=== PATIENT | female | born 1990 | race Caucasian/White ===

== ENCOUNTER 2016-08-12 10:45 | Emergency (ER) | payer SELFPAY ==
[~2016-08-12] VITALS: Ht 157.5 cm; Wt 56.1 kg
[~2016-08-12 10:45] MED LIST: IRON45TA2 PO; PREN-39 PO
[2016-08-12 10:51] VITALS: Ht 157.5 cm; Wt 56.1 kg
== END 2016-08-12 12:27 | disposition left against medical advice (07) ==
LOC: FTE 10:45
DX: Z53.21 Procedure and treatment not carried out due to patient leaving prior to being seen by health care provider (principal)

== ENCOUNTER 2016-09-29 11:06 | Emergency (ER) | payer OTHER ==
[~2016-09-29] VITALS: Ht 157.5 cm; Wt 64.6 kg
[2016-09-29 11:08] VITALS: Ht 157.5 cm; Wt 64.6 kg
[2016-09-29] MEDS ORDERED: ONDANSETRON 4 MG INJ IV STA (12:10)
--- NOTE | 2016-09-29 12:16 | ERA ---
ER Documentation Chief Complaint Date/Time DATE: 09/29/16 TIME: 12:13 Chief Complaint 14 weeks with pelvic pain HPI The patient is a 26-year-old female, presenting to the ER because of abdominal pain, vaginal clear discharge, dysuria that began about 3 AM today. She also complains of diarrhea intermittently for the last 2 days, last sexual activity was about 4 months ago. She denies fever, chills, neck pain, chest pain, dyspnea. She complains of lower back pain. She does not smoke, drink, LMP was June 20, 2016, 4 para 3 Past medical/surgical history: None ROS All systems reviewed and are negative except as per history of present illness. Medications Home Meds Active Scripts Nitrofurantoin Monohyd Macrocr* (Macrobid*) 100 Mg Capsr, 100 MG PO BID for 10 Days, CAP Prov:CAITLIN CHAVARRIA MD 09/29/16 Reported Medications Iron,Carbonyl (IRON) 45 Mg Tablet, 45 MG PO DAILY 03/10/13 Vits W-Ca,Fe,Fa(<1MG) ( Vitamins) 1 Tab Tablet, 1 TAB PO DAILY 03/04/13 Allergies Allergies: Coded Allergies: No Known Allergy (Verified , 03/04/13) PMhx/Soc Hx Miscellaneous Medical Probl: No (no medical hx) Hx Alcohol Use: No Hx Substance Use: No Hx Tobacco Use: No Physical Exam Vitals Vital Signs Date Time Temp Pulse Resp B/P Pulse Ox O2 Delivery O2 Flow Rate FiO2 09/29/16 11:08 98.1 100 20 116/62 99 Physical Exam Const: No acute distress. Head: Atraumatic. Eyes: Normal Conjunctiva. ENT: Normal External Ears, Nose and Mouth. Neck: Full range of motion. No meningismus. Resp: Clear to auscultation bilaterally. Cardio: Regular rate and rhythm, no murmurs. Abd: Soft, non distended, normal bowel sounds, vague and diffuse abdominal discomfort, no rigidity, rebound, CVA tenderness Skin: No petechiae or rashes. Back: No midline or flank tenderness. Ext: No cyanosis, or edema. Neur: Awake and alert. No focal deficit Psych: Normal Mood and Affect. Result Diagram: 09/29/16 1220 09/29/16 1220 Results 24 hrs Laboratory Tests Test 09/29/16 12:20 09/29/16 13:02 White Blood Count 5.510^3/ul Red Blood Count 4.0910^6/ul Hemoglobin 11.7g/dl Hematocrit 34.3% Mean Corpuscular Volume 83.9fl Mean Corpuscular Hemoglobin 28.6pg Mean Corpuscular Hemoglobin Concent 34.1g/dl Red Cell Distribution Width 13.2% Platelet Count 89774^3/UL Mean Platelet Volume 11.8fl Neutrophils % 91.6% Lymphocytes % 4.5% Monocytes % 3.3% Eosinophils % 0.0% Basophils % 0.2% Nucleated Red Blood Cells % 0.0/100WBC Neutrophils # 5.110^3/ul Lymphocytes # 0.310^3/ul Monocytes # 0.210^3/ul Eosinophils # 0.010^3/ul Basophils # 0.010^3/ul Nucleated Red Blood Cells # 0.010^3/ul Sodium Level 133mmol/L Potassium Level 3.1mmol/L Chloride Level 100mmol/L Carbon Dioxide Level 22mmol/L Anion Gap 14 Blood Urea Nitrogen 9mg/dl Creatinine 0.56mg/dl Glucose Level 88mg/dl Calcium Level 8.1mg/dl Total Bilirubin 0.5mg/dl Direct Bilirubin 0.00mg/dl Indirect Bilirubin 0.5mg/dl Aspartate Amino Transf (AST/SGOT) 25IU/L Alanine Aminotransferase (ALT/SGPT) 25IU/L Alkaline Phosphatase 60IU/L Total Protein 6.8g/dl Albumin 3.5g/dl Globulin 3.30g/dl Albumin/Globulin Ratio 1.06 Lipase 170U/L Bedside Urine pH (LAB) 5.5 Bedside Urine Protein (LAB) Negative Bedside Urine Glucose (UA) Negative Bedside Urine Ketones (LAB) Trace Bedside Urine Blood Negative Bedside Urine Nitrite (LAB) Negative Bedside Urine Leukocyte Esterase (L 1+ Current Medications Medications (Trade) Dose Ordered Sig/Avinash Route PRN Reason Start Time Stop Time Status Last Admin Dose Admin Sodium Chloride (NS) 1,000 ml @ 1,000 mls/hr Q1H ONCE IV 09/29/16 12:30 09/29/16 13:29 DC 09/29/16 13:07 Ondansetron HCl (Zofran Inj) 4 mg ONCE STAT IV 09/29/16 12:10 09/29/16 12:11 DC 09/29/16 13:07 Potassium Chloride (Klor-Con 20) 40 meq ONCE STAT PO 09/29/16 13:15 09/29/16 13:17 DC 09/29/16 13:37 Procedures/MDM [place] [id number] Radiology Main Line: [phone] DIAGNOSTIC IMAGING REPORT Patient: AMAYA RUIZ : 1990 Age: 26 Sex: F MR #: [id number] DOS: 09/29/16 1221 Ordering MD: SANTOS ALEXANDER MD Location: [facility] Room/Bed: PROCEDURE: US OB CLINICAL INDICATION: PAIN TECHNIQUE: Multiple sonographic images of the pelvis were obtained. The images were reviewed on a PACS workstation. COMPARISON: None FINDINGS: The cervix is closed with a length of 3.9 cm. There is a single viable intrauterine gestation. Cardiac activity is present with 161 beats per minute. There is a variable presentation. The placenta is posterior. There is no evidence for an abruption or placenta previa. There is a subjectively normal amount of amniotic fluid. Measurements were made in order to determine age. The results are as follows (cm): BPD = 2.64 HC = 10.17 AC = 8.89 FL = 1.22 Estimated gestational age by ultrasound of approximately 14 weeks, 4 days. The estimated date of delivery by ultrasound is 03/26/2017. Reported gestational age by LMP of approximately 14 weeks, 3 days. The report date of delivery by LMP is eased 03/27/2017. EFW = 97 grams (33rd percentile) Bilateral ovaries are not visualized. There are no abnormal adnexal masses. IMPRESSION: Single viable intrauterine gestation of approximately 14 weeks, 4 days . The estimated date of delivery is 03/26/2017 . Dating by ultrasound is within 1 day of dating by LMP. Estimated weight is in the 33rd percentile. RPTAT: EE Physician Jaclyn Date Time Electronically viewed and signed by Physician Jaclyn on 09/29/2016 12:45 RA/ CC: SANTOS ALEXANDER MD MEDICAL MAKING DECISION: The patient is a 36-year-old female, presenting with acute cystitis, acute hypokalemia, acute dehydration. She was treated with 1 L normal saline for dehydration, Zofran 4 mg IV for nausea, potassium chloride 40 mEq for low potassium. On multiple reevaluation, she felt well. The differential diagnoses considered include but are not limited to cholelithiasis , cholecystitis, cystitis, pancreatitis, hepatitis, gastritis, peptic ulcer disease, gastric ulcer, appendicitis, diverticulitis, cholangitis, choledocholithiasis, partial small bowel obstruction. Departure Diagnosis: Primary Impression: UTI (urinary tract infection) Additional Impressions: Hypokalemia Dehydration Anemia Thrombocytopenia Condition: Good Comments She was discharged with Macrobid I discussed the findings with the patient. I advised the patient to follow-up with the primary physician in about 1-2 days, sooner if needed and return if any concern. CAITLIN CHAVARRIA MD Sep 29, 2016 12:16
[2016-09-29] MEDS ORDERED: SOD CHLORIDE 0.9% 1,000 ML IV ONE (12:30)
[2016-09-29 12:36] LABS: ADD SCAN DIFF NO
[2016-09-29 12:40] LABS: ABNORMAL IP MESSAGE 1; BASOPHILS % 0.2 % (0.0-2.0); HEMATOCRIT 34.3 % (37.0-47.0); HEMOGLOBIN 11.7 g/dl (12.0-16.0); LYMPHOCYTES # 0.3 10^3/ul (0.8-2.9); LYMPHOCYTES % 4.5 % (15.0-51.0); MEAN CORPUSCULAR HEMOGLOBIN 28.6 pg (29.0-33.0); MEAN CORPUSCULAR HGB CONC 34.1 g/dl (32.0-37.0); MEAN CORPUSCULAR VOLUME 83.9 fl (82.0-101.0); MEAN PLATELET VOLUME 11.8 fl (7.4-10.4); MONOCYTE # 0.2 10^3/ul (0.3-0.9); MONOCYTES % 3.3 % (0.0-11.0); NEUTROPHIL # 5.1 10^3/ul (1.6-7.5); NEUTROPHILS % 91.6 % (39.0-77.0); PLATELET COUNT 134 10^3/UL (140-415); RED BLOOD COUNT 4.09 10^6/ul (4.20-5.40); RED CELL DISTRIBUTION WIDTH 13.2 % (11.5-14.5); WHITE BLOOD COUNT 5.5 10^3/ul (4.8-10.8)
--- NOTE | 2016-09-29 12:45 | RADRPT ---
PROCEDURE: US OB CLINICAL INDICATION: PAIN TECHNIQUE: Multiple sonographic images of the pelvis were obtained. The images were reviewed on a PACS workstation. COMPARISON: None FINDINGS: The cervix is closed with a length of 3.9 cm. There is a single viable intrauterine gestation. Cardiac activity is present with 161 beats per minute. There is a variable presentation. The placenta is posterior. There is no evidence for an abruption or placenta previa. There is a subjectively normal amount of amniotic fluid. Measurements were made in order to determine age. The results are as follows (cm): BPD =2.64 HC =10.17 AC =8.89 FL =1.22 Estimated gestational age by ultrasound of approximately 14 weeks, 4 days. The estimated date of delivery by ultrasound is 03/26/2017. Reported gestational age by LMP of approximately 14 weeks, 3 days. The report date of delivery by LMP is eased 03/27/2017. EFW = 97 grams (33rd percentile) Bilateral ovaries are not visualized. There are no abnormal adnexal masses. IMPRESSION: Single viable intrauterine gestation of approximately 14 weeks, 4 days . The estimated date of delivery is 03/26/2017 . Dating by ultrasound is within 1 day of dating by LMP. Estimated weight is in the 33rd percentile. RPTAT: EE Physician Jaclyn Date Time Electronically viewed and signed by Physician Jaclyn on 09/29/2016 12:45 RA/
[2016-09-29 12:50] LABS: ALBUMIN 3.5 g/dl (3.3-4.9)
[2016-09-29 12:51] LABS: POTASSIUM 3.1 mmol/L (3.5-5.1)
[2016-09-29 12:53] LABS: ALBUMIN/GLOBULIN RATIO 1.06; BILIRUBIN,INDIRECT 0.5 mg/dl (0-1.1); BILIRUBIN,TOTAL 0.5 mg/dl (0.2-1.3); CALCIUM 8.1 mg/dl (8.4-10.2); CREATININE 0.56 mg/dl (0.44-1.00); TOTAL PROTEIN 6.8 g/dl (6.1-8.1)
[2016-09-29 13:02] LABS: URINE BLOOD (Dip) POC Negative (NEGATIVE)
[2016-09-29] MEDS ORDERED: POTASSIUM CHLORIDE (SR) 20 MEQ TAB PO STA (13:15)
[2016-09-29] MEDS ORDERED: NITR-58 PO (13:17)
== END 2016-09-29 14:13 | disposition home or self-care (01) ==
LOC: FTE 11:06
DX: O23.42 Unspecified infection of urinary tract in pregnancy, second trimester (principal); E87.6 Hypokalemia; E86.0 Dehydration; D64.9 Anemia, unspecified; D69.6 Thrombocytopenia, unspecified; O99.282 Endocrine, nutritional and metabolic diseases complicating pregnancy, second trimester; O99.112 Other diseases of the blood and blood-forming organs and certain disorders involving the immune mechanism complicating pregnancy, second trimester; R10.2 Pelvic and perineal pain; Z3A.14 14 weeks gestation of pregnancy
CPT/HCPCS: 36415; 76805; 80053; 81003; 83690; 84702; 85025; 86900; 86901; 96361; 96374; J2405; J7030; Z7502; Z7610

== ENCOUNTER 2016-10-02 21:11 | Emergency (ER) | payer OTHER ==
[~2016-10-02] VITALS: Ht 160 cm; Wt 30.0 kg
[~2016-10-02 21:11] MED LIST changes: +NITR-58 PO
[2016-10-02 21:20] VITALS: Ht 160 cm; Wt 30.0 kg
[2016-10-02 21:55] LABS: URINE BLOOD (Dip) POC 2+ (NEGATIVE)
[2016-10-02 22:15] LABS: ADD SCAN DIFF NO
[2016-10-02 22:18] LABS: BASOPHILS % 0.3 % (0.0-2.0); EOSINOPHILS # 0.1 10^3/ul (0.0-0.5); HEMATOCRIT 32.5 % (37.0-47.0); LYMPHOCYTES # 1.3 10^3/ul (0.8-2.9); LYMPHOCYTES % 37.1 % (15.0-51.0); MEAN CORPUSCULAR HEMOGLOBIN 28.5 pg (29.0-33.0); MEAN CORPUSCULAR HGB CONC 33.8 g/dl (32.0-37.0); MEAN CORPUSCULAR VOLUME 84.2 fl (82.0-101.0); MEAN PLATELET VOLUME 11.8 fl (7.4-10.4); MONOCYTE # 0.3 10^3/ul (0.3-0.9); NEUTROPHIL # 1.8 10^3/ul (1.6-7.5); NEUTROPHILS % 51.6 % (39.0-77.0); PLATELET COUNT 144 10^3/UL (140-415); RED BLOOD COUNT 3.86 10^6/ul (4.20-5.40); RED CELL DISTRIBUTION WIDTH 13.5 % (11.5-14.5); WHITE BLOOD COUNT 3.5 10^3/ul (4.8-10.8)
[2016-10-02 22:19] LABS: ADD UMIC YES; URINE BILIRUBIN (Dip) NEGATIVE (NEGATIVE); URINE BLOOD (Dip) 2+ (NEGATIVE); URINE COLOR LT. YELLOW (YELLOW); URINE GLUCOSE (Dip) NEGATIVE (NEGATIVE); URINE KETONES (Dip) NEGATIVE (NEGATIVE); URINE LEUKOCYTE ESTERASE (Dip) TRACE (NEGATIVE); URINE NITRITE (Dip) NEGATIVE (NEGATIVE); URINE TOTAL PROTEIN (Dip) NEGATIVE (NEGATIVE); URINE UROBILINOGEN (Dip) 2.0 E.U./dL (0.1-1.0)
[2016-10-02 22:33] LABS: BACTERIA,URINE FEW; SQUAMOUS EPITHELIAL CELL,UR MODERATE
--- NOTE | 2016-10-02 23:40 | RADRPT ---
PROCEDURE: US OB. US OB Transabd 1St Tri CLINICAL INDICATION: Vaginal Bleed () TECHNIQUE: Multiple sonographic images of the pelvis were obtained. The images were reviewed on a PACS workstation. COMPARISON: No prior studies are available for comparison. FINDINGS: There is a single viable intrauterine gestation. Cardiac activity is present with 154 beats per min [place]. Measurements were made in order to determine age. The results are as follows: BPD =2.8 cm. HC =10.4 cm. AC = 9.2 cm. FL =1.7 cm. Estimated gestational age of approximately 15 weeks and 1 day. The estimated date of delivery is 03/25/2017. Estimated delivery date by last menstrual period is 0 03/27/2017.. The EFW = 117 grams, 68% . The placenta is posterior fundal, grade 1. There is no evidence for an abruption or placenta previa. There is a normal amount of amniotic fluid with a maximum vertical pocket measuring 5.6 cm IMPRESSION: Single viable intrauterine gestation of approximately 15 weeks and 1 day. The estimated date of del loc is 03/25/2017. RPTAT: HBST .Panchito De Leon MD, Date Time Electronically viewed and signed by .Panchito De Leon MD, MD on 10/02/2016 23:39 .T/
[2016-10-02] MEDS ORDERED: CEPH500C PO (23:45)
--- NOTE | 2016-10-02 23:48 | ERD ---
ER Documentation Chief Complaint Date/Time DATE: 10/02/16 TIME: 23:47 Chief Complaint Vaginal bleed and 15 weeks HPI Patient is a 26-year-old female with 2 planned abortions and 2 miscarriages approximately 15 weeks complaining of vaginal bleeding that began today. 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 Denies any clots. Does admit to dysuria hematuria and increased urinary frequency. Also with a 8 out of 10 throbbing pelvic pain. Admits to nausea and vomiting. Denies any fever. She is tolerating oral intake. ROS All systems reviewed and are negative except as per history of present illness. Medications Home Meds Active Scripts Cephalexin* (Cephalexin*) 500 Mg Capsule, 500 MG PO BID, #10 CAP Prov:MELISSA BARRERA PA-C 10/02/16 Nitrofurantoin Monohyd Macrocr* (Macrobid*) 100 Mg Capsr, 100 MG PO BID for 10 Days, CAP Prov:CAITLIN CHAVARRIA MD 09/29/16 Reported Medications Iron,Carbonyl (IRON) 45 Mg Tablet, 45 MG PO DAILY 03/10/13 Vits W-Ca,Fe,Fa(<1MG) ( Vitamins) 1 Tab Tablet, 1 TAB PO DAILY 03/04/13 Allergies Allergies: Coded Allergies: No Known Allergy (Verified , 03/04/13) PMhx/Soc Medical and Surgical Hx: pt denies Medical Hx, pt denies Surgical Hx Hx Miscellaneous Medical Probl: Yes (para8 gravida3 ab 4) Hx Alcohol Use: No Hx Substance Use: No Hx Tobacco Use: No Smoking Status: Never smoker FmHx Family History: No diabetes Physical Exam Vitals Vital Signs Date Time Temp Pulse Resp B/P Pulse Ox O2 Delivery O2 Flow Rate FiO2 10/02/16 21:20 97.2 77 18 123/69 100 Physical Exam Const: [] Head: Atraumatic Eyes: Normal Conjunctiva ENT: Normal External Ears, Nose and Mouth. Neck: Full range of motion..~ No meningismus. Resp: Clear to auscultation bilaterally Cardio: Regular rate and rhythm, no murmurs Abd: Soft, non tender, non distended. Normal bowel sounds Result Diagram: 10/02/16 2200 Results 24 hrs Laboratory Tests Test 10/02/16 21:55 4/7/17 22:00 Bedside Urine pH (LAB) 7.0 Bedside Urine Protein (LAB) Negative Bedside Urine Glucose (UA) Negative Bedside Urine Ketones (LAB) Negative Bedside Urine Blood 2+ Bedside Urine Nitrite (LAB) Negative Bedside Urine Leukocyte Esterase (L Negative White Blood Count 3.510^3/ul Red Blood Count 3.8610^6/ul Hemoglobin 11.0g/dl Hematocrit 32.5% Mean Corpuscular Volume 84.2fl Mean Corpuscular Hemoglobin 28.5pg Mean Corpuscular Hemoglobin Concent 33.8g/dl Red Cell Distribution Width 13.5% Platelet Count 68346^3/UL Mean Platelet Volume 11.8fl Neutrophils % 51.6% Lymphocytes % 37.1% Monocytes % 9.0% Eosinophils % 2.0% Basophils % 0.3% Nucleated Red Blood Cells % 0.0/100WBC Neutrophils # 1.810^3/ul Lymphocytes # 1.310^3/ul Monocytes # 0.310^3/ul Eosinophils # 0.110^3/ul Basophils # 0.010^3/ul Nucleated Red Blood Cells # 0.010^3/ul Urine Color LT. YELLOW Urine Clarity CLEAR Urine pH 7.0 Urine Specific [place] <=1.005 Urine Ketones NEGATIVE Urine Nitrite NEGATIVE Urine Bilirubin NEGATIVE Urine Urobilinogen 2.0 E.U./dL Urine Leukocyte Esterase TRACE Urine Microscopic RBC 2-5/HPF Urine Microscopic WBC 2-5/HPF Urine Squamous Epithelial Cells MODERATE Urine Bacteria FEW Urine Hemoglobin 2+ Urine Glucose NEGATIVE% Urine Total Protein NEGATIVE Beta HCG, Quantitative 14567.0mIU/ml Procedures/MDM Patient presents with vaginal bleeding during . Vital signs are within normal limits she is well-appearing in no distress. GI examination is benign. OB ultrasound and labs unremarkable other than possible urinary tract infection which he does have symptoms and so I will treat her with Keflex. She was given copies of her labs that she can follow with her primary care doctor. Recommend patient follow with primary care within 2 days or return for any new or worsening symptoms. Departure Diagnosis: Primary Impression: Cystitis Additional Impression: Threatened Condition: Stable Patient Instructions: Cystitis, Possible Miscarriage (Threatened ) Additional Instructions: Call your primary care doctor TOMORROW for an appointment during the next 1-2 days.See the doctor sooner or return here if your condition worsens before your appointment time. MELISSA BARRERA PA-C, Apr 7, 2017 23:48
[2016-10-03 00:06] VITALS: BP 115/61; PULSE 69; RESP 20
== END 2016-10-03 00:07 | disposition home or self-care (01) ==
LOC: FTE 21:11
DX: O23.12 Infections of bladder in pregnancy, second trimester (principal); O20.0 Threatened abortion; Z3A.15 15 weeks gestation of pregnancy
CPT/HCPCS: 36415; 76801; 81001; 81003; 84702; 85025; 86900; 86901; Z7502

== ENCOUNTER 2016-11-26 10:46 | Outpatient (CLI) | payer OTHER ==
[~2016-11-26] VITALS: Ht 160 cm; Wt 62.8 kg
[~2016-11-26 10:46] MED LIST changes: +CEPH500C PO
[2016-11-26 10:49] VITALS: Ht 160 cm; Wt 62.8 kg
[2016-11-26 10:54] VITALS: BP 111/56; PULSE 72; RESP 18
[2016-11-26] MEDS ORDERED: LACTATED RINGER'S 1,000 ML IV ONE (11:30)
[2016-11-26 12:03] LABS: ADD SCAN DIFF NO
[2016-11-26 12:16] LABS: BASOPHILS % 0.5 % (0.0-2.0); EOSINOPHILS % 0.5 % (0.0-7.0); HEMATOCRIT 29.4 % (37.0-47.0); HEMOGLOBIN 9.8 g/dl (12.0-16.0); LYMPHOCYTES # 1.1 10^3/ul (0.8-2.9); LYMPHOCYTES % 25.7 % (15.0-51.0); MEAN CORPUSCULAR HEMOGLOBIN 27.1 pg (29.0-33.0); MEAN CORPUSCULAR HGB CONC 33.3 g/dl (32.0-37.0); MEAN CORPUSCULAR VOLUME 81.4 fl (82.0-101.0); MEAN PLATELET VOLUME 11.9 fl (7.4-10.4); MONOCYTE # 0.3 10^3/ul (0.3-0.9); NEUTROPHIL # 2.9 10^3/ul (1.6-7.5); NEUTROPHILS % 65.8 % (39.0-77.0); PLATELET COUNT 172 10^3/UL (140-415); RED BLOOD COUNT 3.61 10^6/ul (4.20-5.40); RED CELL DISTRIBUTION WIDTH 13.8 % (11.5-14.5); WHITE BLOOD COUNT 4.4 10^3/ul (4.8-10.8)
[2016-11-26 12:37] LABS: ADD UMIC YES; URINE BILIRUBIN (Dip) NEGATIVE (NEGATIVE); URINE BLOOD (Dip) NEGATIVE (NEGATIVE); URINE COLOR LT. YELLOW (YELLOW); URINE GLUCOSE (Dip) NEGATIVE (NEGATIVE); URINE KETONES (Dip) NEGATIVE (NEGATIVE); URINE LEUKOCYTE ESTERASE (Dip) 2+ (NEGATIVE); URINE NITRITE (Dip) NEGATIVE (NEGATIVE); URINE TOTAL PROTEIN (Dip) NEGATIVE (NEGATIVE); URINE UROBILINOGEN (Dip) 1.0 E.U./dL (0.1-1.0)
[2016-11-26 13:13] LABS: BACTERIA,URINE FEW; URINE RBCS NONE SEEN /HPF (0)
[2016-11-26] MEDS ORDERED: LACTATED RINGER'S 1,000 ML IV SCH (14:00)
--- NOTE | 2016-11-26 14:22 | RADRPT ---
PROCEDURE: Limited obstetric ultrasound CLINICAL INDICATION: Pain , labor TECHNIQUE: Multiple transverse and longitudinal grayscale images of the pelvis were obtained posada sabdominally and transvaginally.. COMPARISON: 10/02/2016 FINDINGS: The cervix is closed with a length of 4.5 cm. There is a single viable intrauterine gestation. Cardiac activity is present with 148 beats per min [place]. There is a transverse maternal left presentation. The placenta is posterior. There is no evidence for an abruption or placenta previa. RPTAT: AA IMPRESSION: Cervix length measures 4.5 cm. .Christopher Smith MD, Date Time Electronically viewed and signed by .Christopher Smith MD, MD on 11/26/2016 14:21 .S/
--- NOTE | 2016-11-26 14:50 | CONS ---
Date/Time of Note Date/Time of Note DATE: 11/26/16 TIME: 14:41 Consultation Date/Type/Reason Admit Date/Time November 26, 2016 OB triage consult Reason for Consultation This patient is a 26 years old 8, para 3, living 3, two spontaneous and 2 induced . All her 3 deliveries were vaginal She came to triage complaining of cramping for 2 days. Her cramps are mostly in the lower abdomen as well as in the back. She had a history of urinary tract infection a few months ago for which she was treated with antibiotic. On general examination she is a well-developed well-nourished lady in mid trimester . Her general vital signs within normal limits, blood pressure 111/56, pulse rate 72, respiration 8, temperature 98.6. On review her lab study her urine test came back with the 2+ leukocyte esterase and 2-5 WBCs, her hemoglobin is 9.8 hematocrit 29.4 otherwise her CBC appears to be normal . On ultrasound study a single viable intrauterine gestation in vertex presentation with heart rates of 148 bpm. Cervical length was reported as 4.5 cm placenta was posterior Laboratory Tests Test 11/26/16 11:30 White Blood Count 4.410^3/ul Red Blood Count 3.6110^6/ul Hemoglobin 9.8g/dl Hematocrit 29.4% Mean Corpuscular Volume 81.4fl Mean Corpuscular Hemoglobin 27.1pg Mean Corpuscular Hemoglobin Concent 33.3g/dl Red Cell Distribution Width 13.8% Platelet Count 73540^3/UL Mean Platelet Volume 11.9fl Neutrophils % 65.8% Lymphocytes % 25.7% Monocytes % 7.0% Eosinophils % 0.5% Basophils % 0.5% Nucleated Red Blood Cells % 0.0/100WBC Neutrophils # 2.910^3/ul Lymphocytes # 1.110^3/ul Monocytes # 0.310^3/ul Eosinophils # 0.010^3/ul Basophils # 0.010^3/ul Nucleated Red Blood Cells # 0.010^3/ul Urine Color LT. YELLOW Urine Clarity CLEAR Urine pH 5.5 Urine Specific [place] 1.010 Urine Ketones NEGATIVE Urine Nitrite NEGATIVE Urine Bilirubin NEGATIVE Urine Urobilinogen 1.0 E.U./dL Urine Leukocyte Esterase 2+ Urine Microscopic RBC NONE SEEN/HPF Urine Microscopic WBC 2-5/HPF Urine Epithelial Cells MODERATE Urine Bacteria FEW Urine Hemoglobin NEGATIVE Urine Glucose NEGATIVE% Urine Total Protein NEGATIVE Current Medications Medications (Trade) Dose Ordered Sig/Avinash Route PRN Reason Start Time Stop Time Status Last Admin Dose Admin Lactated Ringer's 1,000 ml @ 1,000 mls/hr Q1H ONCE IV 11/26/16 11:30 11/26/16 12:29 DC 11/26/16 11:30 1,000 MLS/HR Lactated Ringer's (Lr) 1,000 ml @ 125 mls/hr Q8H IV 11/26/16 14:00 11/26/16 14:21 125 MLS/HR Constitutional: other (General malaise and low back pain), No chills, No diaphoresis, No disoriented, No febrile, No improved, No no complaints, No poor po, No requiring IVF, No requiring O2 Eyes: No discharge, No no complaints, No other, No pain, No redness, No visual change ENT: No bleeding, No congestion, No discharge, No dysphagia, No no complaints, No other, No pain, No sore throat Respiratory: No cough, No no complaints, No other, No pain, No pleuritic pain, No shortness of breath, No sputum, No wheezing Cardiovascular: No chest pain, No edema, No lightheadedness, No no complaints, No orthopenea, No other, No palpitations, No paroxysmal nocturnal dyspnea Gastrointestinal: No blood, No constipation, No decreased appetite, No diarrhea , No flatus, No nausea, No no complaints, No other, No pain, No passing stool, No vomiting Genitourinary: other (Slight CVA tenderness lower abdominal pain), No bleeding, No discharge, No dysuria, No flank pain, No hematuria, No no complaints Musculoskeletal: No back pain, No bone/joint pain, No neck pain, No no complaints, No other, No restricted range of motion, No swelling Skin: No bruising, No erythema, No laceration, No no complaints, No other, No pruritis, No rash, No skin lesions Neurologic: No confusion, No dizziness, No focal-weakness, No headache, No no complaints, No other, No seizure, No syncope Endocrine: No dry skin, No no complaints, No other, No polydypsia, No polyuria , No temp intolerance Additional Comments Due to history of urinary tract infection the urine specimen sent for culture and sensitivity. A prescription given for Macrobid 100 mg to be taken twice daily Patient is recommended to contact the clinic or the hospital to see the results of the urinalysis and culture sensitivity and to be placed on more effective antibiotic according to the result of the sensitivity. Social History Smoking Status: Never smoker Exam/Review of Systems Vital Signs Vitals Vital Signs Date Time Temp Pulse Resp B/P Pulse Ox O2 Delivery O2 Flow Rate FiO2 11/26/16 10:54 98.5 72 18 111/56 Room Air Results Result Diagram: 11/26/16 1130 Results 24 hrs Laboratory Tests Test 11/26/16 11:30 White Blood Count 4.4 #L Red Blood Count 3.61 L Hemoglobin 9.8 L Hematocrit 29.4 L Mean Corpuscular Volume 81.4 L Mean Corpuscular Hemoglobin 27.1 L Mean Corpuscular Hemoglobin Concent 33.3 Red Cell Distribution Width 13.8 Platelet Count 172 Mean Platelet Volume 11.9 H Neutrophils % 65.8 Lymphocytes % 25.7 Monocytes % 7.0 Eosinophils % 0.5 Basophils % 0.5 Nucleated Red Blood Cells % 0.0 Neutrophils # 2.9 Lymphocytes # 1.1 Monocytes # 0.3 Eosinophils # 0.0 Basophils # 0.0 Nucleated Red Blood Cells # 0.0 Urine Color LT. YELLOW Urine Clarity CLEAR Urine pH 5.5 Urine Specific [place] 1.010 Urine Ketones NEGATIVE Urine Nitrite NEGATIVE Urine Bilirubin NEGATIVE Urine Urobilinogen 1.0 E.U./dL Urine Leukocyte Esterase 2+ H Urine Microscopic RBC NONE SEEN Urine Microscopic WBC 2-5 Urine Epithelial Cells MODERATE Urine Bacteria FEW Urine Hemoglobin NEGATIVE Urine Glucose NEGATIVE Urine Total Protein NEGATIVE Medications Medications Current Medications Lactated Ringer's (Lr) 1,000 ml @ 125 mls/hr Q8H IV Last administered on t 14:21; Admin Dose 125 MLS/HR; Start 11/26/16 at 14:00 ERMA STALEY MD Nov 26, 2016 14:50
--- NOTE | 2016-11-26 15:31 | TRIAGE ---
OB Triage Datetime Report Generated by CPN: 11/26/2016 15:30 Datetime: 11/26/2016 14:30 Monitor Mode: External Resting Tone [place]: Relaxed Contraction Comments: Contractions difficult to monitor due to pt moving in bed. Datetime: 11/26/2016 13:30 Labor Evaluation Frequency: OCC Monitor Mode: External Resting Tone [place]: Relaxed Contraction Comments: Contractions difficult to monitor due to pt moving in bed. Datetime: 11/26/2016 12:30 Labor Evaluation Frequency: OCC Monitor Mode: External Quality: Mild Pattern: Normal: <= 5 Contractions in 10 Minutes Resting Tone [place]: Relaxed Contraction Comments: Contractions difficult to monitor due to pt moving in bed. Datetime: 11/26/2016 11:30 Monitor Mode: External Resting Tone [place]: Relaxed Pain Assessment Pain Scale: 6 Pain Presence: Intermittent Pain Type: Ache Pain Location: Abdomen; Back Pain Goal: 0 Pain Relief Measures: Comfort Measures Datetime: 11/26/2016 11:15 Heart Rate FHR Baseline Rate: 140 Monitor Mode: Doppler Datetime: 11/26/2016 10:54 Assessment Type: Triage Maternal Assessment Level of Consciousness: Fully Conscious DTR's/Clonus: DTRs 2+; No Clonus Headache: Denies Blurred Vision: No Respiratory Effort: Unlabored; Regular Rhythm; Equal Expansion Breath Sounds, Left: Clear and Equal Breath Sounds, Right: Clear and Equal Nausea/Vomiting: Denies RUQ Epigastric Pain: Denies Lower Extremities Edema: None Degree: None Upper Extremities Edema: None Degree: None Facial Edema: None Temperature Route: Oral Fall Risk Assessment History of Falling: (0) No Secondary Diagnosis: (0) No Ambulatory Aid: (0) Bedrest/Nurse Assist IV Therapy: (0) No Gait: (0) Normal/Bedrest/Immobile Mental Status: (0) Oriented to Own Ability Fall Score: 0 Fall Risk Score Definition: No Risk: No action required Datetime: 11/26/2016 10:48 Time of Arrival: 11/26/2016 10:40 EGA: 23.0 Arrived By: Wheelchair Arrived From: Emergency Dept Chief Complaint: back and abdominal pain Movement: Present Contractions: Denies/Absent Rupture of Membranes: Denies Vaginal Bleeding: None Vaginal Discharge: Denies Recent Sexual Intercouse: Denies Abdominal Trauma: Not Applicable Patient Complaints: Contractions Time Provider Notified: 11/26/2016 11:06 Provider Notified: [facility] Initial Plan: Doppler, TOCO monitoring, UA and Urine culture, CBC, IV Hydration 1L LR bolus Datetime: 11/26/2016 10:47 Stage of : OB Triage
== END 2016-11-26 14:55 | disposition home or self-care (01) ==
LOC: OBT 10:46 → L-D 10:47 → OBT 14:55
PROVIDERS: ATTEND Obstetrics & Gynecology
DX: O26.892 Other specified pregnancy related conditions, second trimester (principal); R10.30 Lower abdominal pain, unspecified; M54.9 Dorsalgia, unspecified; O09.292 Supervision of pregnancy with other poor reproductive or obstetric history, second trimester; Z3A.23 23 weeks gestation of pregnancy
CPT/HCPCS: 36415; 76817; 81001; 85025; 87086; 96360; 96361; J7120; Z7500; G0463

== ENCOUNTER 2016-12-27 12:59 | Outpatient (CLI) | payer OTHER ==
[~2016-12-27] VITALS: Ht 160 cm; Wt 66.4 kg
[~2016-12-27 12:59] MED LIST changes: -CEPH500C PO
[2016-12-27] MEDS ORDERED: FER325 PO (13:15)
[2016-12-27 13:16] VITALS: BP 109/58; PULSE 77; RESP 18; Ht 160 cm; Wt 66.4 kg
--- NOTE | 2016-12-27 14:31 | RADRPT ---
PROCEDURE: US OB. CLINICAL INDICATION: Premature rupture of membranes. Pelvic pain. TECHNIQUE: Multiple sonographic images of the pelvis were obtained. The images were reviewed on a PACS workstation. COMPARISON: November 26, 2016, November 18, 2016 FINDINGS: The cervix is closed with a length of 3.93 cm. There is a single viable intrauterine gestation. Cardiac activity is present with 124 beats per min [place]. There is a breech presentation. Measurements were made in order to determine age. The results are as follows: BPD =6.45 cm HC =25.12 cm AC =25.18 cm FL =4.85 cm. Estimated gestational age of approximately 27 weeks 2 days. The estimated date of delivery is March 26, 2017. The EFW = a 1148 g plus or minus 172 g or 2 pounds 8 ounces. This is in the 57.8 percentile . The heart, intracranial contents, spine, stomach, kidneys, bladder and cord insertion are visualized and without abnormality. The placenta is posterior. There is no evidence for an abruption or placenta previa. There is a normal amount of amniotic fluid with an [place] = 18.1 cm. There are no adnexal masses.. IMPRESSION: Single viable intrauterine gestation of approximately 27 weeks 2 days. The estimated date of delive ry is March 26, 2017. The weight is in the 57.8 percentile . Appropriate growth has occurred. No acute abnormality is seen. RPTAT: EE .Rosa M Wong MD, MD Date Time Electronically viewed and signed by .Rosa M Wong MD, MD on 12/27/2016 14:30 .F/
--- NOTE | 2016-12-27 15:47 | TRIAGE ---
OB Triage Datetime Report Generated by CPN: 12/27/2016 15:47 Datetime: 12/27/2016 15:00 Stage of : OB Triage Maternal Assessment Level of Consciousness: Fully Conscious Labor Evaluation Frequency: 1UC/HR Monitor Mode: External Duration (sec)2399: 60 Quality: Mild Resting Tone [place]: Relaxed Heart Rate FHR Baseline Rate: 135 Monitor Mode: External US Variability: Moderate 6-25 bpm Accelerations: 15X15 Decelerations: None Pain Assessment Pain Scale: 0 Pain Goal: 3 Vaginal Exam Membrane Status: Intact Vaginal Bleeding: None Datetime: 12/27/2016 14:00 Stage of : OB Triage Maternal Assessment Level of Consciousness: Fully Conscious Labor Evaluation Frequency: NONE Monitor Mode: External Resting Tone [place]: Relaxed Heart Rate FHR Baseline Rate: 135 Monitor Mode: External US Variability: Moderate 6-25 bpm Accelerations: 10X10 Decelerations: None Pain Assessment Pain Scale: 0 Pain Goal: 3 Vaginal Exam Membrane Status: Intact Vaginal Bleeding: None Datetime: 12/27/2016 13:11 Assessment Type: Triage Maternal Assessment Level of Consciousness: Fully Conscious DTR's/Clonus: DTRs 2+; No Clonus Headache: Denies Blurred Vision: No Respiratory Effort: Unlabored; Regular Rhythm; Equal Expansion Breath Sounds, Left: Clear and Equal Breath Sounds, Right: Clear and Equal Nausea/Vomiting: Denies RUQ Epigastric Pain: Denies Lower Extremities Edema: None Degree: None Upper Extremities Edema: None Degree: None Facial Edema: None Fall Risk Assessment History of Falling: (0) No Secondary Diagnosis: (0) No Ambulatory Aid: (0) Bedrest/Nurse Assist IV Therapy: (0) No Gait: (0) Normal/Bedrest/Immobile Mental Status: (0) Oriented to Own Ability Fall Score: 0 Fall Risk Score Definition: No Risk: No action required Datetime: 12/27/2016 13:07 Pool: Negative Nitrazine: Negative Datetime: 12/27/2016 13:05 Monitor Mode: External Monitor Mode: External US Datetime: 12/27/2016 13:02 Time of Arrival: 12/27/2016 12:59 EGA: 27.3 Arrived By: Ambulance Arrived From: Home Chief Complaint: PT BROUGHT IN VIA RESCUE FOR C/O POSSIBLE SROM Movement: Present Contractions: Denies/Absent Rupture of Membranes: Unsure Vaginal Bleeding: None Vaginal Discharge: Present Recent Sexual Intercouse: Denies Abdominal Trauma: Not Applicable Patient Complaints: None Time Provider Notified: 12/27/2016 13:05 Provider Notified: [facility] Initial Plan: ROM PLUS, U/S FOR EFW, SHASHANK, CVL Datetime: 11/26/2016 10:54 Fall Score: 0 Fall Risk Score Definition: No Risk: No action required Datetime: 11/26/2016 10:48 EGA: 23.0
--- NOTE | 2016-12-27 15:48 | HP ---
Date/Time of Note Date/Time of Note DATE: 12/27/16 TIME: 15:44 OB - History Hx of Present Free Text/Dictation 26 YO who present to L&D with complaint of one episode of LOF per vagina. she denies vaginal bleeding or UCs. she reports good FM. she denies any further LOF per vagina. she reports good FM. Care: Good Care Obstetrical Complications: None Medical Complications: None Past Family/Social History * Past Medical, Surgical, Family and Obstetric Histories reviewed from chart. OB Admission Exam Vital Signs Vital Signs Vital Signs Date Time Temp Pulse Resp B/P Pulse Ox O2 Delivery O2 Flow Rate FiO2 12/27/16 13:16 98.2 77 18 109/58 98 Room Air Physical Exam HEENT: WNL Heart: Rhythm Normal Lungs: Clear, Equal Abdomen: WNL Extremities: Normal Reflexes: Normal Cervical Dilatation: other (SSE: Pooling is negative. Nitrazine is negative. cervix is long and closed) Effacement: 0% Station: -3 OB Assessment/Plan Other Assessment: 28 weeks IUP PPROM was ruled out Other plan: discharge home TURNER DIOP MD Dec 27, 2016 15:47
== END 2016-12-27 15:52 | disposition home or self-care (01) ==
LOC: OBT 12:59 → L-D 12:59 → OBT 15:52
PROVIDERS: ATTEND Obstetrics & Gynecology
DX: O42.912 Preterm premature rupture of membranes, unspecified as to length of time between rupture and onset of labor, second trimester (principal); Z3A.27 27 weeks gestation of pregnancy
CPT/HCPCS: 76815; 76817; 84112; Z7500; G0463

== ENCOUNTER 2017-02-19 03:10 | Outpatient (CLI) | payer OTHER ==
[~2017-02-19] VITALS: Ht 160 cm; Wt 69.8 kg
[~2017-02-19 03:10] MED LIST changes: +CEPH500C PO; +FER325 PO; +PREN1TAB49
[2017-02-19 03:28] VITALS: BP 126/76; PULSE 80; RESP 18
[2017-02-19] MEDS ORDERED: TERBUTALINE 1 MG/ML INJ SC ONE (05:00)
--- NOTE | 2017-02-19 05:17 | RADRPT ---
PROCEDURE: Biophysical profile. CLINICAL INDICATION: Pelvic pain. TECHNIQUE: Multiple sonographic images of the pelvis were obtained with transabdominal technique. COMPARISON: 02/06/2017. FINDINGS: There is a single living intrauterine gestation with the fetus in a vertex position. The placenta i s posterior in location, grade 1. heart tones of 146 beats per minute are identified. There i s normal amniotic fluid volume with an SHASHANK of 16.2 cm. breathing movements = 2 Gross body movements = 2 tone = 2 Qualitative AFV = 2 IMPRESSION: Biophysical profile 8 out of 8. .Nic Mckeon MD, Date Time Electronically viewed and signed by .Nic Mckeon MD, on 02/19/2017 05:17 .T/
--- NOTE | 2017-02-19 06:07 | PN ---
Triage Information Date/Time February 19, 2017 Reason for visit: Uterine contractions (Since 0100) Weeks of Gestation 35w 1d /Para 8/3 Diabetes: none Hypertention: none Additional information No leaking or bleeding.+FM. PMHx: none. POBHx: x 3; TAB x 2. SAB x 2. PSHx: D and C x 2 for the 2 TAB's. NKDA. Objective Vital Signs Date Time Temp Pulse Resp B/P Pulse Ox O2 Delivery O2 Flow Rate FiO2 02/19/17 03:28 98.3 80 18 126/76 Room Air Heart Rate: 130's Heart Rate Comments with accels to 160 bpm. No decels. Contractions: < 5 Minutes Apart Exam 50%1/-3 Results/Medications Imaging Results BPP 02/02. SHASHANK 16.2. VTX. Disposition: Discharge Assessment/Plan A: IUP at 35w 1d. False labor. P: Pt was given p.o. terbutaline and p.o. hydration and the UC's stopped. D/C home with labor precautions. ZENOBIA BATRES MD Feb 19, 2017 06:06
[2017-02-19 06:35] LABS: ADD UMIC YES; UR ASCORBIC ACID NEGATIVE (NEGATIVE); UR BACTERIA FEW /HPF (NONE SEEN); UR BILIRUBIN (Dip) NEGATIVE (NEGATIVE); UR BLOOD (Dip) NEGATIVE (NEGATIVE); UR CLARITY SLIGHTLY CLOUDY (CLEAR); UR COLOR STRAW (YELLOW); UR GLUCOSE (Dip) NEGATIVE (NEGATIVE); UR KETONES (Dip) NEGATIVE (NEGATIVE); UR LEUKOCYTE ESTERASE (Dip) 1+ Leu/ul (NEGATIVE); UR NITRITE (Dip) NEGATIVE (NEGATIVE); UR RBC 2 /HPF (0-5); UR SPECIFIC GRAVITY (Dip) 1.004 (1.003-1.030); UR SQUAMOUS EPITHELIAL CELL MODERATE /HPF (FEW); UR TOTAL PROTEIN (Dip) NEGATIVE (NEGATIVE); UR UROBILINOGEN (Dip) NEGATIVE (NEGATIVE)
[2017-02-19 07:00] LABS: BARBITURATES Negative (NEGATIVE); BENZODIAZEPINES Negative (NEGATIVE); CANNABINOIDS Negative (NEGATIVE); COCAINE Negative (NEGATIVE); OPIATES Negative (NEGATIVE)
== END 2017-02-19 06:08 | disposition home or self-care (01) ==
LOC: L-D 03:10 → OBT 03:10
PROVIDERS: ATTEND Obstetrics & Gynecology
DX: O62.9 Abnormality of forces of labor, unspecified (principal); Z3A.35 35 weeks gestation of pregnancy
CPT/HCPCS: 76818; 80307; 81001; 96372; J3105; Z7500; G0463

== ENCOUNTER 2017-02-24 13:57 | Outpatient (CLI) | payer OTHER ==
[~2017-02-24] VITALS: Ht 160 cm; Wt 71.4 kg
[~2017-02-24 13:57] MED LIST changes: -CEPH500C PO; -IRON45TA2 PO; -NITR-58 PO; -PREN1TAB49
[2017-02-24 16:02] LABS: ADD UMIC NO; UR ASCORBIC ACID NEGATIVE (NEGATIVE); UR BILIRUBIN (Dip) NEGATIVE (NEGATIVE); UR BLOOD (Dip) NEGATIVE (NEGATIVE); UR CLARITY CLEAR (CLEAR); UR COLOR YELLOW (YELLOW); UR GLUCOSE (Dip) NEGATIVE (NEGATIVE); UR KETONES (Dip) NEGATIVE (NEGATIVE); UR LEUKOCYTE ESTERASE (Dip) NEGATIVE Leu/ul (NEGATIVE); UR NITRITE (Dip) NEGATIVE (NEGATIVE); UR SPECIFIC GRAVITY (Dip) 1.011 (1.003-1.030); UR TOTAL PROTEIN (Dip) NEGATIVE (NEGATIVE); UR UROBILINOGEN (Dip) 2+ mg/dL (NEGATIVE)
--- NOTE | 2017-02-24 16:48 | RADRPT ---
PROCEDURE: US biophysical profile. CLINICAL INDICATION: Decreased motion. TECHNIQUE: Multiple sonographic images of the uterus were obtained. The images were revi ewed on a PACS workstation. COMPARISON: 02/19/2017. FINDINGS: There is a single live intrauterine gestation. heart rate is 122 beats per minute. The position is cephalic. The placenta is posterior fundal left lateral grade 1 with no abruption or previa. The SHASHANK is 19.7 cm. (Normal = 5-20 cm.) Breathing Movement: 0 Gross Body Movement: 2 Tone: 2 Qualitative Amniotic Fluid Volume: 2 TOTAL: 6 IMPRESSION: 1. The biophysical score is 6/8. RPTAT: QQ .Ari Rosa MD, MD Date Time Electronically viewed and signed by .Ari Rosa MD, on 02/24/2017 16:47 .R/
[2017-02-24 16:52] VITALS: Ht 160 cm; Wt 71.4 kg
[2017-02-24] MEDS ORDERED: DEXTROSE 5%-LR 1,000 ML IV SCH (17:05)
--- NOTE | 2017-02-24 20:20 | RADRPT ---
PROCEDURE: Obstetrical ultrasound for biophysical profile CLINICAL INDICATION: Biophysical profile. . TECHNIQUE: Obstetrical ultrasound of the uterus for biophysical profile. Transabdominal views are obtained. COMPARISON: 02/24/2017 FINDINGS: Single intrauterine gestation. Presentation: Breech Placenta: Posterior No evidence of placental abruption. Lower margin of the placenta its relationship to the cervix are not well visualized. breathing movement = 2/2 tone = 2/2 motion = 2/2 SHASHANK = 2/2 SHASHANK = 18.3 cm heart rate: 129 beats per minute IMPRESSION: Single intrauterine gestation. Biophysical profile 02/02 RPTAT: AADD .Jovani West MD, MD Date Time Electronically viewed and signed by .Jovani West MD, on 02/24/2017 20:20 .B/
--- NOTE | 2017-02-24 20:57 | PN ---
Triage Information Date/Time February 24, 2017 Reason for visit: Pelvic pain and pressure as well as contractions Weeks of Gestation 35 weeks and 6 days /Para 8 para 3 Diabetes: none Hypertention: none Additional information 26-year-old she takes P3 with IUP at 35 weeks and 6 days [facility] presents with complaint of vaginal pain and contractions. Denies any leaking of fluid, vaginal bleeding or decreased movement. She was noted to be 1 cm dilated 50% effaced -3. She had been observed and had IV hydration. BPP initially was 6/8, -2 for breathing and after hydration and IV fluid improved to 8/8. Patient symptoms resolved. Cervical exam did not show any change. Objective Heart Rate: 120's Contractions: >10 Minutes Apart Exam SVE: 1/50/-3, vertex NST: Category 1 Rare contractions seen on the monitor Repeat exam did not show any change Fundal Height consistent with date. Results/Medications Results 24 hrs Laboratory Tests Test 02/24/17 15:00 Urine Color YELLOW Urine Clarity CLEAR Urine pH 7.0 Urine Specific [place] 1.011 Urine Ketones NEGATIVE Urine Nitrite NEGATIVE Urine Bilirubin NEGATIVE Urine Urobilinogen 2+ H Urine Leukocyte Esterase NEGATIVE Urine Hemoglobin NEGATIVE Urine Glucose NEGATIVE Urine Total Protein NEGATIVE Medications Current Medications Dextrose/Lactated Ringer's (D5-Lr) 1,000 ml @ 200 mls/hr Q5H IV Last administered on 02/24/17t 18:28; Admin Dose 200 MLS/HR; Start 02/24/17 at 17:05 Imaging Results PROCEDURE: Obstetrical ultrasound for biophysical profile CLINICAL INDICATION: Biophysical profile. . TECHNIQUE: Obstetrical ultrasound of the uterus for biophysical profile. Transabdominal views are obtained. COMPARISON: 02/24/2017 FINDINGS: Single intrauterine gestation. Presentation: Breech Placenta: Posterior No evidence of placental abruption. Lower margin of the placenta its relationship to the cervix are not well visualized. breathing movement = 2/2 tone = 2/2 motion = 2/2 SHASHANK = 2/2 SHASHANK = 18.3 cm heart rate: 129 beats per minute IMPRESSION: Single intrauterine gestation. Biophysical profile 02/02 Disposition: Discharge Assessment/Plan IUP at 35 weeks and 6 days Not in labor testing reassuring DC home Follow-up within 24-48 hours with OB office Strict labor precaution and kick count discussed CINDY HARRINGTON MD Feb 24, 2017 20:57
--- NOTE | 2017-02-24 23:27 | TRIAGE ---
OB Triage Datetime Report Generated by CPN: 02/24/2017 23:26 Datetime: 02/24/2017 19:57 Heart Rate FHR Baseline Rate: 130 Monitor Mode: External US FHR Baseline Changes: No Baseline Change Variability: Moderate 6-25 bpm Accelerations: 15X15 Decelerations: None Category: Category I Datetime: 02/24/2017 19:39 Monitor Mode: External Resting Tone [place]: Relaxed Heart Rate FHR Baseline Rate: 130 Monitor Mode: External US Datetime: 02/24/2017 17:51 Vaginal Exam Dilatation (cms): 1.0 Effacement (%): 50 Station: -3 Exam By: Elle RN Datetime: 02/24/2017 17:45 Comments: NST DONE, monitors removed Datetime: 02/24/2017 16:54 Time of Arrival: 02/24/2017 13:51 EGA: 35.6 Arrived By: Ambulatory Arrived From: Home Chief Complaint: VAGINAL PAIN Movement: Present Contractions: Regular Rupture of Membranes: Denies Vaginal Bleeding: None Vaginal Discharge: Denies Recent Sexual Intercouse: Denies Abdominal Trauma: Not Applicable Patient Complaints: Other Time Provider Notified: 02/24/2017 14:00 Provider Notified: [facility] Initial Plan: EFM x2, SVE, IV with D5LR Datetime: 02/24/2017 15:58 Labor Evaluation Frequency: 3-6 Monitor Mode: External Duration (sec)2399: 60-120 Quality: Mild Pattern: Normal: <= 5 Contractions in 10 Minutes Resting Tone [place]: Relaxed Heart Rate FHR Baseline Rate: 130 Monitor Mode: External US FHR Baseline Changes: No Baseline Change Variability: Moderate 6-25 bpm Accelerations: 15X15 Decelerations: None Category: Category I Pain Assessment Pain Scale: 8 Pain Presence: Intermittent Pain Type: Contraction Pain Location: Back Pain Goal: 0 Pain Relief Measures: Comfort Measures Datetime: 02/24/2017 14:58 Labor Evaluation Frequency: OCC Monitor Mode: External Quality: Mild Pattern: Normal: <= 5 Contractions in 10 Minutes Resting Tone [place]: Relaxed Heart Rate FHR Baseline Rate: 125 Monitor Mode: External US FHR Baseline Changes: No Baseline Change Variability: Moderate 6-25 bpm Accelerations: 15X15 Decelerations: None Category: Category I Pain Assessment Pain Scale: 6 Pain Presence: Intermittent Pain Type: Contraction Pain Location: Back Pain Goal: 0 Pain Relief Measures: Comfort Measures Datetime: 02/24/2017 14:55 Vaginal Exam Dilatation (cms): 1.0 Effacement (%): 50 Station: -3 Exam By: Elle RN Datetime: 02/24/2017 14:00 Assessment Type: Triage Maternal Assessment Level of Consciousness: Fully Conscious DTR's/Clonus: DTRs 2+; No Clonus Headache: Denies Blurred Vision: No Respiratory Effort: Unlabored; Regular Rhythm; Equal Expansion Breath Sounds, Left: Clear and Equal Breath Sounds, Right: Clear and Equal Nausea/Vomiting: Denies RUQ Epigastric Pain: Denies Facial Edema: None Fall Risk Assessment History of Falling: (0) No Secondary Diagnosis: (0) No Ambulatory Aid: (0) Bedrest/Nurse Assist IV Therapy: (0) No Gait: (0) Normal/Bedrest/Immobile Mental Status: (0) Oriented to Own Ability Fall Score: 0 Fall Risk Score Definition: No Risk: No action required Datetime: 02/19/2017 05:57 Stage of : OB Triage Datetime: 02/19/2017 05:33 Stage of : OB Triage Monitor Mode: External US FHR Baseline Changes: No Baseline Change Variability: Moderate 6-25 bpm Accelerations: 15X15 Datetime: 02/19/2017 04:50 Stage of : OB Triage Labor Evaluation Frequency: 2-4 Monitor Mode: External Quality: Moderate Pattern: Normal: <= 5 Contractions in 10 Minutes Resting Tone [place]: Relaxed Heart Rate FHR Baseline Rate: 130 Monitor Mode: External US FHR Baseline Changes: No Baseline Change Variability: Moderate 6-25 bpm Accelerations: 15X15 Decelerations: None Category: Category I Pain Assessment Pain Scale: 8 Pain Presence: Intermittent Pain Type: Contraction Pain Location: Abdomen Datetime: 02/19/2017 03:44 Labor Evaluation Frequency: 2-4 Monitor Mode: External Quality: Moderate Pattern: Normal: <= 5 Contractions in 10 Minutes Resting Tone [place]: Relaxed Heart Rate FHR Baseline Rate: 140 Monitor Mode: External US FHR Baseline Changes: No Baseline Change Variability: Moderate 6-25 bpm Accelerations: 15X15 Category: Category I Datetime: 02/19/2017 03:30 Time of Arrival: 02/19/2017 03:06 EGA: 35.1 Arrived By: Wheelchair Arrived From: Home Chief Complaint: w/ c/o ucs Movement: Present Contractions: Regular Time Contractions Began: 02/19/2017 01:00 Contractions: q5 Rupture of Membranes: Denies Vaginal Bleeding: None Vaginal Discharge: Denies Recent Sexual Intercouse: Denies Abdominal Trauma: Not Applicable Patient Complaints: Contractions Time Provider Notified: 02/19/2017 04:50 Provider Notified: Dr Yung Initial Plan: EFM,SVE, po hydration Datetime: 02/19/2017 03:26 Labor Evaluation Frequency: 2-3 Monitor Mode: External Duration (sec)2399: 60 Quality: Moderate Pattern: Normal: <= 5 Contractions in 10 Minutes Resting Tone [place]: Relaxed Heart Rate FHR Baseline Rate: 140 Monitor Mode: External US Variability: Moderate 6-25 bpm Accelerations: 15X15 Decelerations: Variable Category: Category II Vaginal Exam Dilatation (cms): 1.0 Effacement (%): 50 Station: -3 Exam By: Yifan Peters Membrane Status: Intact Vaginal Bleeding: None Cervix, Consistency: Soft Cervix, Position: Posterior Datetime: 02/19/2017 03:18 Stage of : OB Triage Maternal Assessment Level of Consciousness: Fully Conscious Headache: Denies Blurred Vision: No Respiratory Effort: Unlabored Nausea/Vomiting: Denies RUQ Epigastric Pain: Denies Facial Edema: None Labor Evaluation Frequency: placed Monitor Mode: External Resting Tone [place]: Relaxed Heart Rate FHR Baseline Rate: 135 Monitor Mode: External US Pain Assessment Pain Scale: 10 Pain Presence: Intermittent Pain Type: Contraction Pain Location: Abdomen Datetime: 02/06/2017 00:04 Stage of : OB Triage Datetime: 02/05/2017 22:57 Stage of : OB Triage Heart Rate FHR Baseline Rate: 135 Monitor Mode: External US FHR Baseline Changes: No Baseline Change Variability: Moderate 6-25 bpm Accelerations: 15X15 Comments: Pt frequently moving and difficult to monitor Datetime: 02/05/2017 22:01 Stage of : OB Triage Monitor Mode: External Quality: Mild Pattern: Normal: <= 5 Contractions in 10 Minutes Resting Tone [place]: Relaxed Heart Rate FHR Baseline Rate: 135 Monitor Mode: External US Variability: Moderate 6-25 bpm Accelerations: 15X15 Pain Assessment Pain Scale: 5 Pain Presence: Intermittent Pain Type: Cramping Pain Location: Abdomen Datetime: 02/05/2017 21:10 Stage of : OB Triage Monitor Mode: External Quality: Mild Pattern: Normal: <= 5 Contractions in 10 Minutes Resting Tone [place]: Relaxed Heart Rate FHR Baseline Rate: 140 Monitor Mode: External US Variability: Moderate 6-25 bpm Accelerations: 15X15 Datetime: 02/05/2017 21:00 EGA: 33.1 Datetime: 02/05/2017 20:47 Stage of : OB Triage Headache: Denies Blurred Vision: No Respiratory Effort: Unlabored Facial Edema: None Labor Evaluation Frequency: placed Monitor Mode: External Resting Tone [place]: Relaxed Heart Rate FHR Baseline Rate: 140 Monitor Mode: External US Pain Assessment Pain Scale: 7 Pain Presence: Intermittent Pain Type: Cramping Pain Location: Abdomen Datetime: 12/27/2016 13:11 Fall Score: 0 Fall Risk Score Definition: No Risk: No action required Datetime: 12/27/2016 13:02 EGA: 27.3 Datetime: 11/26/2016 10:54 Fall Score: 0 Fall Risk Score Definition: No Risk: No action required Datetime: 11/26/2016 10:48 EGA: 23.0
== END 2017-02-24 21:04 | disposition home or self-care (01) ==
LOC: OBT 13:57 → L-D 13:59 → OBT 21:04
PROVIDERS: ATTEND Obstetrics & Gynecology
DX: O26.893 Other specified pregnancy related conditions, third trimester (principal); R10.2 Pelvic and perineal pain; Z3A.35 35 weeks gestation of pregnancy
CPT/HCPCS: 76818; 81003; J7121; 36415; 96360; 96361; G0463

== ENCOUNTER 2017-03-08 20:26 | Observation (INO) | payer OTHER ==
[~2017-03-08] VITALS: Ht 160 cm; Wt 72.3 kg
[2017-03-08 21:10] VITALS: Ht 160 cm; Wt 72.3 kg
[2017-03-08 21:11] VITALS: BP 139/73; PULSE 80; RESP 20
[2017-03-08] MEDS ORDERED: FOL8 PO (21:14)
[2017-03-08 22:23] LABS: BARBITURATES Negative (NEGATIVE); BENZODIAZEPINES Negative (NEGATIVE); CANNABINOIDS Negative (NEGATIVE); COCAINE Negative (NEGATIVE); OPIATES Negative (NEGATIVE)
--- NOTE | 2017-03-08 22:25 | RADRPT ---
PROCEDURE: Obstetrical ultrasound CLINICAL INDICATION: . OB ultrasound with fluid volume assessment. TECHNIQUE: Obstetrical ultrasound of the uterus for fluid volume assessment. Transabdomi nal imaging of the uterus was performed. COMPARISON: 02/24/2017 FINDINGS: Presentation: Cephalic Partially visualized placenta: Posterior heart rate: 140 Beats per minute. IMPRESSION: Amniotic fluid index equals 23.5 cm. Previously 18.3 cm. Mild polyhydramnios. RPTAT: AADD .Jovani West MD, Date Time Electronically viewed and signed by .Jovani West MD, MD on 03/08/2017 22:24 .B/
[2017-03-08 23:19] LABS: ADD UMIC NO; UR ASCORBIC ACID NEGATIVE (NEGATIVE); UR BACTERIA FEW /HPF (NONE SEEN); UR BILIRUBIN (Dip) NEGATIVE (NEGATIVE); UR BLOOD (Dip) NEGATIVE (NEGATIVE); UR CLARITY SLIGHTLY CLOUDY (CLEAR); UR COLOR YELLOW (YELLOW); UR GLUCOSE (Dip) NEGATIVE (NEGATIVE); UR KETONES (Dip) NEGATIVE (NEGATIVE); UR LEUKOCYTE ESTERASE (Dip) NEGATIVE Leu/ul (NEGATIVE); UR NITRITE (Dip) NEGATIVE (NEGATIVE); UR RBC 1 /HPF (0-5); UR SPECIFIC GRAVITY (Dip) 1.008 (1.003-1.030); UR SQUAMOUS EPITHELIAL CELL FEW /HPF (FEW); UR TOTAL PROTEIN (Dip) NEGATIVE (NEGATIVE); UR UROBILINOGEN (Dip) NEGATIVE (NEGATIVE)
--- NOTE | 2017-03-09 00:25 | TRIAGE ---
OB Triage Datetime Report Generated by CPN: 03/09/2017 00:25 Datetime: 03/09/2017 00:13 Stage of : OB Triage Labor Evaluation Frequency: 3-5 Monitor Mode: External Duration (sec)2399: 60-90 Quality: Moderate Pattern: Normal: <= 5 Contractions in 10 Minutes Resting Tone [place]: Relaxed Heart Rate FHR Baseline Rate: 140 Monitor Mode: External US FHR Baseline Changes: No Baseline Change Variability: Moderate 6-25 bpm Accelerations: 15X15 Decelerations: Variable Category: Category II Datetime: 03/09/2017 00:09 Vaginal Exam Dilatation (cms): 3.0 Effacement (%): 60 Station: -1 Exam By: gstratton Datetime: 03/08/2017 23:33 Stage of : OB Triage Comments: PT BACK FROM AMBULATORY, MONITORS REATTACHED. Datetime: 03/08/2017 21:31 Labor Evaluation Frequency: q2-5 Monitor Mode: External Duration (sec)2399: 60-90 Quality: Moderate Resting Tone [place]: Relaxed Heart Rate FHR Baseline Rate: 140 Monitor Mode: External US FHR Baseline Changes: No Baseline Change Variability: Moderate 6-25 bpm Accelerations: 15X15 Decelerations: None Category: Category I Datetime: 03/08/2017 20:49 Vaginal Exam Dilatation (cms): 1.5 Effacement (%): 30 Station: -1 Exam By: alyssa rnc Vaginal Bleeding: None Cervix, Consistency: Moderate Cervix, Position: Posterior Presentation 'A': Unable to Assess Datetime: 03/08/2017 20:48 Assessment Type: Triage Maternal Assessment Level of Consciousness: Fully Conscious DTR's/Clonus: DTRs 2+; No Clonus Headache: Denies Blurred Vision: No Respiratory Effort: Unlabored; Regular Rhythm; Equal Expansion Breath Sounds, Left: Clear and Equal Breath Sounds, Right: Clear and Equal Nausea/Vomiting: Denies RUQ Epigastric Pain: Denies Facial Edema: None Fall Risk Assessment History of Falling: (0) No Secondary Diagnosis: (0) No Ambulatory Aid: (0) Bedrest/Nurse Assist IV Therapy: (0) No Gait: (0) Normal/Bedrest/Immobile Mental Status: (0) Oriented to Own Ability Fall Score: 0 Fall Risk Score Definition: No Risk: No action required Datetime: 03/08/2017 20:43 Pain Assessment Pain Scale: 7 Pain Presence: Intermittent Pain Goal: 0 Datetime: 03/08/2017 20:42 Time of Arrival: 03/08/2017 20:42 EGA: 37.4 Arrived By: Ambulatory Arrived From: Home Chief Complaint: diarrhea and pressure Movement: Present Contractions: Irregular Rupture of Membranes: Denies Vaginal Bleeding: None Vaginal Discharge: Present Recent Sexual Intercouse: Denies Abdominal Trauma: Not Applicable Patient Complaints: Other Time Provider Notified: 03/08/2017 21:32 Provider Notified: [facility] Initial Plan: u/s for position and jorge, uds, ambulate 2 hours Datetime: 02/24/2017 16:54 EGA: 35.6 Datetime: 02/24/2017 14:00 Fall Score: 0 Fall Risk Score Definition: No Risk: No action required Datetime: 02/19/2017 03:30 EGA: 35.1 Datetime: 02/05/2017 21:00 EGA: 33.1 Datetime: 12/27/2016 13:11 Fall Score: 0 Fall Risk Score Definition: No Risk: No action required Datetime: 12/27/2016 13:02 EGA: 27.3 Datetime: 11/26/2016 10:54 Fall Score: 0 Fall Risk Score Definition: No Risk: No action required Datetime: 11/26/2016 10:48 EGA: 23.0
[2017-03-09] MEDS ORDERED: CARBOPROST 250 MCG INJ IM PRN (00:30)
[2017-03-09] MEDS ORDERED: OXYTOCIN 30 UNITS/LR 500 ML IV PRN (00:30)
[2017-03-09] MEDS ORDERED: MISOPROSTOL 200 MCG TAB PR PRN (00:30)
[2017-03-09] MEDS ORDERED: OXYTOCIN 30 UNITS/LR 500 ML IV SCH ×2 (00:30)
[2017-03-09] MEDS ORDERED: IBUPROFEN 600 MG TAB PO PRN (00:30)
[2017-03-09] MEDS ORDERED: LIDOCAINE 1% (MPF) 30 ML INJ INJ PRN (00:30)
[2017-03-09] MEDS ORDERED: MINERAL OIL LIGHT 10 ML VIAL TOP ONE (00:30)
[2017-03-09] MEDS ORDERED: METHYLERGONOVINE 0.2 MG INJ IM PRN (00:30)
[2017-03-09] MEDS ORDERED: BUTORPHANOL 2 MG INJ IV PRN (00:30)
[2017-03-09] MEDS: LACTATED RINGER'S 1,000 ML IV SCH ×3 (01:12→13:50)
[2017-03-09 01:33] LABS: ABNORMAL IP MESSAGE 1; BASOPHILS % 0.4 % (0.0-2.0); EOSINOPHILS # 0.1 10^3/ul (0.0-0.5); EOSINOPHILS % 0.7 % (0.0-7.0); HEMATOCRIT 30.3 % (37.0-47.0); HEMOGLOBIN 9.4 g/dl (12.0-16.0); LYMPHOCYTES # 1.6 10^3/ul (0.8-2.9); LYMPHOCYTES % 21.7 % (15.0-51.0); MEAN CORPUSCULAR HEMOGLOBIN 21.9 pg (29.0-33.0); MEAN CORPUSCULAR VOLUME 70.6 fl (82.0-101.0); MEAN PLATELET VOLUME 11.5 fl (7.4-10.4); MONOCYTE # 0.5 10^3/ul (0.3-0.9); MONOCYTES % 6.1 % (0.0-11.0); NEUTROPHILS % 70.7 % (39.0-77.0); NUCLEATED RED BLOOD CELLS% 0.3 /100WBC (0.0-0.0); PLATELET COUNT 159 10^3/UL (140-415); RED BLOOD COUNT 4.29 10^6/ul (4.20-5.40); RED CELL DISTRIBUTION WIDTH 16.7 % (11.5-14.5); WHITE BLOOD COUNT 7.5 10^3/ul (4.8-10.8)
[2017-03-09 01:38] LABS: POSITIVE DIFF @See below
[2017-03-09 01:56] LABS: INR 0.91; PROTIME 12.3 Sec (12.2-14.2)
[2017-03-09 01:57] LABS: PARTIAL THROMBOPLASTIN TIME 29.7 Sec (25.0-35.0)
[2017-03-09] MEDS ORDERED: LACTATED RINGER'S 1,000 ML IV PRN (02:00)
--- NOTE | 2017-03-09 02:38 | HP ---
Date/Time of Note Date/Time of Note DATE: 03/09/17 TIME: 02:30 OB - History Hx of Present Free Text/Dictation 26 Year-old with SIUP at 37 4/7 weeks presents with a chief complaint of UCS. She has been receiving her care with Dr. Sidhu. She states good movement. She denies nausea, vomiting, shortness of breath, chest pain, headache, visual changes, vaginal bleeding or LOF. Estimated Due Date: Mar 27, 2017 : 8 Para: 3 Care: Good Care Ultrasounds: Normal mid trimester US Obstetrical Complications: None Past Family/Social History * Past Medical, Surgical, Family and Obstetric Histories reviewed from chart. Blood Type: A+ Rubella: immune RPR/VDRL: Negative GBS Status: Negative HBsAG: Negative OB Admission Exam Vital Signs Vital Signs Vital Signs Date Time Temp Pulse Resp B/P Pulse Ox O2 Delivery O2 Flow Rate FiO2 03/08/17 21:11 98.0 80 20 139/73 Room Air Physical Exam HEENT: WNL Heart: Rhythm Normal Lungs: Clear Abdomen: WNL Extremities: Normal Cervical Dilatation: 3cm Effacement: 75% Station: -2 Membranes: Intact Heart Rate: 140's Accelerations: Accelerations Present Decelerations: Early Decelerations Varibility: Moderate Contractions on Admission: < 5 Minutes Apart Intensity: Moderate Last 72 hours Lab Results CBC & BMP 03/09/17 01:10 OB Assessment/Plan Other plan: 26 Year-old with SIUP at 37 4/7 weeks - FHR: No sign of metabolic acidosis- Category I - Continious EFM, toco - CBC, blood type and screen - Analgesia options with R/B/A discussed in detail with patient - Epidural per patient request - Please see the orders - A+/Rubella: Immune/obtain GBS negative Admission, procedures, expectations, risks and possible complications have been discussed in detail with the patient. Risk of vaginal delivery including but not limited to bleeding, infection, cervical laceration, placental retention, injury to fetus, blood transfusion, blood transfusion related infection, risk of anesthesia, adhesion, cervical laceration, episiotomy/laceration, possible delivery with risk of bleeding, infection, injury to other organs ( bowel, bladder, ureter, vessels, nerves), injury to fetus, blood transfusion, blood transfusion related infection, risk of anesthesia, scar and hernia formation, needs for future , removal of uterus or any other indicated surgery discussed with the patient. She expressed understanding and repeats the risks. All of her questions were answered; all appropriate consents will be signed. PHYSICIAN'S VERIFICATION OF INFORMED CONSENT: The patient was counseled regarding the procedure, its indications, risks, potential complications and alternatives and any questions were answered. Consent was obtained. PLANNED PROCEDURE/TREATMENT: Vaginal delivery with possible vacuum/forceps delivery episiotomy, repair of laceration possible delivery PHYSICIAN'S VERIFICATION OF INFORMED CONSENT FOR BLOOD TRANSFUSION: There is a reasonable possibility that blood transfusion will be necessary as a result of the patient's procedure. I have discussed the following with the patient/patient's legal dental detail representative: An explanation of the benefits and risks of the transfusion of blood or blood products and the possible alternatives. Al questions have been answered to the patient's satisfaction. LISA SALEEM Mar 09, 2017 02:38
--- NOTE | 2017-03-09 14:35 | DS ---
Date/Time of Note Date/Time of Note DATE: 03/09/17 TIME: 14:34 Obstetrical Discharge Record Final Diagnosis Final Diagnosis: Term not delivered Other Final Diagnosis Not in active labor Condition on Discharge Physical Assessment Voiding: Yes Bowel Movement: Yes Calf Tenderness: No Patient Condition: Stable SALVADOR HUERTA MD Mar 09, 2017 14:35
== END 2017-03-09 14:50 | disposition home or self-care (01) ==
LOC: OBT 20:26 → OBG 20:26 → L-D 21:30 → OBT 03-09 00:14 → INTOOBSV 03-09 00:14 → L-D 03-09 00:14
PROVIDERS: ADMIT Obstetrics & Gynecology; ATTEND Obstetrics & Gynecology
DX: O47.1 False labor at or after 37 completed weeks of gestation (principal); Z3A.37 37 weeks gestation of pregnancy
CPT/HCPCS: 36415; 76815; 80307; 81001; 85025; 85610; 85730; 86592; 86900; 86901; 87340; 96360; 96361; J7120; Z7500; 81003; 99217; G0378; G0463

== ENCOUNTER 2017-03-12 15:30 | Outpatient (CLI) | payer OTHER ==
[~2017-03-12] VITALS: Ht 160 cm; Wt 73.4 kg
[~2017-03-12 15:30] MED LIST changes: +FOL8 PO
[2017-03-12 16:56] VITALS: Ht 160 cm; Wt 73.4 kg
--- NOTE | 2017-03-12 18:36 | RADRPT ---
PROCEDURE: Obstetrical ultrasound greater than 14 weeks CLINICAL INDICATION: Vaginal leaking. Possible ruptured membranes TECHNIQUE: Real time sonographic imaging of the gravid uterus is performed transabdominally and mu ltiple static cowan scale and Doppler images are submitted for review as are measurements. The image s are reviewed on the PACS. COMPARISON: 03/08/2017 FINDINGS: . There is a single living intrauterine gestation in cephalic presentation. The heart beat is estimated at 144 bpm. Placenta is posterior and grade2. There is no evidence of placenta previa or abruption. The amniotic fluid index is normal estimated at 16.5 cm. RPTAT:HJJR IMPRESSION: 1. Single viable intrauterine gestation in cephalic presentation, the amniotic fluid index estimated at 16.5 cm, normal but decreased from the study of 03/08/2017 at which time it measured 23.6 cm. 2. Normal heart rate of 144 bpm. Physician Ira Date Time Electronically viewed and signed by Physician Ira on 03/12/2017 18:36 JR/
[2017-03-12 19:42] LABS: ADD UMIC NO; UR ASCORBIC ACID NEGATIVE (NEGATIVE); UR BILIRUBIN (Dip) NEGATIVE (NEGATIVE); UR BLOOD (Dip) NEGATIVE (NEGATIVE); UR CLARITY CLEAR (CLEAR); UR COLOR YELLOW (YELLOW); UR GLUCOSE (Dip) NEGATIVE (NEGATIVE); UR KETONES (Dip) NEGATIVE (NEGATIVE); UR LEUKOCYTE ESTERASE (Dip) NEGATIVE Leu/ul (NEGATIVE); UR NITRITE (Dip) NEGATIVE (NEGATIVE); UR SPECIFIC GRAVITY (Dip) 1.014 (1.003-1.030); UR TOTAL PROTEIN (Dip) NEGATIVE (NEGATIVE); UR UROBILINOGEN (Dip) 2+ mg/dL (NEGATIVE)
[2017-03-12 19:58] LABS: ABNORMAL IP MESSAGE 1; BASOPHILS % 0.3 % (0.0-2.0); EOSINOPHILS % 0.5 % (0.0-7.0); HEMATOCRIT 27.7 % (37.0-47.0); HEMOGLOBIN 8.4 g/dl (12.0-16.0); LYMPHOCYTES # 1.5 10^3/ul (0.8-2.9); MEAN CORPUSCULAR HEMOGLOBIN 21.2 pg (29.0-33.0); MEAN CORPUSCULAR HGB CONC 30.3 g/dl (32.0-37.0); MEAN CORPUSCULAR VOLUME 69.9 fl (82.0-101.0); MEAN PLATELET VOLUME 12.5 fl (7.4-10.4); MONOCYTE # 0.4 10^3/ul (0.3-0.9); MONOCYTES % 6.9 % (0.0-11.0); NEUTROPHIL # 3.9 10^3/ul (1.6-7.5); NEUTROPHILS % 66.6 % (39.0-77.0); PLATELET COUNT 157 10^3/UL (140-415); RED BLOOD COUNT 3.96 10^6/ul (4.20-5.40); WHITE BLOOD COUNT 5.8 10^3/ul (4.8-10.8)
[2017-03-12 19:59] LABS: POSITIVE DIFF @See below
[2017-03-12 20:03] LABS: ALBUMIN 3.1 g/dl (3.3-4.9); ALBUMIN/GLOBULIN RATIO 1.03; BILIRUBIN,INDIRECT 0.3 mg/dl (0-1.1); BILIRUBIN,TOTAL 0.3 mg/dl (0.2-1.3); CALCIUM 8.3 mg/dl (8.4-10.2); CREATININE 0.65 mg/dl (0.44-1.00); POTASSIUM 3.7 mmol/L (3.5-5.1); TOTAL PROTEIN 6.1 g/dl (6.1-8.1); URIC ACID 4.3 mg/dl (3.1-7.9)
--- NOTE | 2017-03-12 20:31 | PN ---
Triage Information Date/Time Reason for visit: SROM Weeks of Gestation 38 weeks /Para Diabetes: none Hypertention: none Objective Heart Rate: 130's Contractions: >10 Minutes Apart Exam No cervical change Sterile speculum exam negative Results/Medications Result Diagram: 03/12/17 1906 03/12/17 1906 Results 24 hrs Laboratory Tests Test 03/12/17 17:35 03/12/17 19:05 03/12/17 19:06 Membranes Rupture NEGATIVE Urine Color YELLOW Urine Clarity CLEAR Urine pH 5.0 Urine Specific [place] 1.014 Urine Ketones NEGATIVE Urine Nitrite NEGATIVE Urine Bilirubin NEGATIVE Urine Urobilinogen 2+ H Urine Leukocyte Esterase NEGATIVE Urine Hemoglobin NEGATIVE Urine Glucose NEGATIVE Urine Total Protein NEGATIVE White Blood Count 5.8 # Red Blood Count 3.96 L Hemoglobin 8.4 L Hematocrit 27.7 L Mean Corpuscular Volume 69.9 L Mean Corpuscular Hemoglobin 21.2 L Mean Corpuscular Hemoglobin Concent 30.3 L Red Cell Distribution Width 17.0 H Platelet Count 157 Mean Platelet Volume 12.5 H Neutrophils % 66.6 Lymphocytes % 25.0 Monocytes % 6.9 Eosinophils % 0.5 Basophils % 0.3 Nucleated Red Blood Cells % 0.0 Neutrophils # 3.9 Lymphocytes # 1.5 Monocytes # 0.4 Eosinophils # 0.0 Basophils # 0.0 Nucleated Red Blood Cells # 0.0 Sodium Level 135 Potassium Level 3.7 Chloride Level 107 Carbon Dioxide Level 23 Anion Gap 9 Blood Urea Nitrogen 10 Creatinine 0.65 Glucose Level 87 Uric Acid 4.3 Calcium Level 8.3 L Total Bilirubin 0.3 Direct Bilirubin 0.00 Indirect Bilirubin 0.3 Aspartate Amino Transf (AST/SGOT) 33 Alanine Aminotransferase (ALT/SGPT) 32 Alkaline Phosphatase 193 H Total Protein 6.1 Albumin 3.1 L Globulin 3.00 Albumin/Globulin Ratio 1.03 Imaging Results SHASHANK normal Disposition: Discharge Assessment/Plan No sign of SROM Not in labor D/C home. SALVADOR HUERTA MD Mar 12, 2017 20:31
--- NOTE | 2017-03-12 20:36 | TRIAGE ---
OB Triage Datetime Report Generated by CPN: 03/12/2017 20:35 Datetime: 03/12/2017 20:00 Labor Evaluation Frequency: OCC Monitor Mode: External Quality: Mild Pattern: Normal: <= 5 Contractions in 10 Minutes Resting Tone [place]: Relaxed Heart Rate FHR Baseline Rate: 135 Monitor Mode: External US FHR Baseline Changes: No Baseline Change Variability: Moderate 6-25 bpm Accelerations: 15X15 Decelerations: None Category: Category I Pain Presence: None/Denies Datetime: 03/12/2017 19:00 Labor Evaluation Frequency: OCC Monitor Mode: External Quality: Mild Pattern: Normal: <= 5 Contractions in 10 Minutes Resting Tone [place]: Relaxed Heart Rate FHR Baseline Rate: 130 Monitor Mode: External US FHR Baseline Changes: No Baseline Change Variability: Moderate 6-25 bpm Accelerations: 15X15 Decelerations: None Category: Category I Datetime: 03/12/2017 18:37 Vaginal Exam Dilatation (cms): 3.0 Effacement (%): 50 Station: -3 Exam By: MD Delshad Datetime: 03/12/2017 17:52 Labor Evaluation Frequency: OCC Monitor Mode: External Quality: Mild Pattern: Normal: <= 5 Contractions in 10 Minutes Resting Tone [place]: Relaxed Heart Rate FHR Baseline Rate: 135 Monitor Mode: External US FHR Baseline Changes: No Baseline Change Variability: Moderate 6-25 bpm Accelerations: 15X15 Decelerations: None Category: Category I Pain Presence: None/Denies Datetime: 03/12/2017 17:38 Vaginal Exam Dilatation (cms): 3.0 Effacement (%): 50 Station: -3 Exam By: Elle HOFFMANN Pool: Negative Datetime: 03/12/2017 17:00 Time of Arrival: 03/12/2017 15:20 EGA: 38.1 Arrived By: Ambulatory Arrived From: Home Chief Complaint: Mucous plug discharged Movement: Present Contractions: Occasional Rupture of Membranes: Denies Vaginal Bleeding: Normal Show Vaginal Discharge: Present Recent Sexual Intercouse: Denies Abdominal Trauma: Not Applicable Patient Complaints: Other Additional Patient Complaints: Time Provider Notified: 03/12/2017 16:49 Provider Notified: Shola Initial Plan: NST, OB US: SHASHANK, ROM +, VE, CMP, CBC, UA Labor Evaluation Frequency: OCC Monitor Mode: External Quality: Moderate Pattern: Normal: <= 5 Contractions in 10 Minutes Resting Tone [place]: Relaxed Heart Rate FHR Baseline Rate: 135 Monitor Mode: External US FHR Baseline Changes: No Baseline Change Variability: Moderate 6-25 bpm Accelerations: 15X15 Decelerations: None Category: Category I Pain Assessment Pain Scale: 2 Pain Presence: Intermittent Pain Type: Ache Pain Location: Abdomen Pain Goal: 0 Pain Relief Measures: Comfort Measures Datetime: 03/12/2017 16:15 Assessment Type: Triage Maternal Assessment Level of Consciousness: Fully Conscious DTR's/Clonus: DTRs 2+; No Clonus Headache: Denies Blurred Vision: No Respiratory Effort: Unlabored; Regular Rhythm; Equal Expansion Breath Sounds, Left: Clear and Equal Breath Sounds, Right: Clear and Equal Nausea/Vomiting: Denies RUQ Epigastric Pain: Denies Lower Extremities Edema: None Degree: None Upper Extremities Edema: None Degree: None Facial Edema: None Fall Risk Assessment History of Falling: (0) No Secondary Diagnosis: (0) No Ambulatory Aid: (0) Bedrest/Nurse Assist IV Therapy: (0) No Gait: (0) Normal/Bedrest/Immobile Mental Status: (0) Oriented to Own Ability Fall Score: 0 Fall Risk Score Definition: No Risk: No action required Datetime: 03/09/2017 14:49 Labor Evaluation Frequency: occ Monitor Mode: External Duration (sec)2399: 60 Quality: Mild Pattern: Normal: <= 5 Contractions in 10 Minutes Resting Tone [place]: Relaxed Heart Rate FHR Baseline Rate: 135 Monitor Mode: External US Variability: Moderate 6-25 bpm Accelerations: 15X15 Decelerations: None Category: Category I Pain Assessment Pain Scale: 3 Pain Presence: Intermittent Pain Type: Contraction Pain Location: Abdomen Pain Goal: 3 Datetime: 03/09/2017 14:29 Vaginal Exam Dilatation (cms): 1.5 Exam By: [email or web address] Datetime: 03/09/2017 14:18 Vaginal Exam Dilatation (cms): 1.5 Station: -3 Exam By: WLIU Datetime: 03/09/2017 12:01 Labor Evaluation Frequency: OCC Monitor Mode: External Duration (sec)2399: 100 Quality: Mild Pattern: Normal: <= 5 Contractions in 10 Minutes Resting Tone [place]: Relaxed Heart Rate FHR Baseline Rate: 135 Monitor Mode: External US Variability: Moderate 6-25 bpm Accelerations: 15X15 Decelerations: None Category: Category I Pain Assessment Pain Scale: 9 Pain Presence: Intermittent Pain Type: Contraction Pain Location: Abdomen Pain Goal: 3 Datetime: 03/09/2017 11:00 Labor Evaluation Frequency: occ Monitor Mode: External Duration (sec)2399: 50-60 Quality: Mild Pattern: Normal: <= 5 Contractions in 10 Minutes Resting Tone [place]: Relaxed Heart Rate FHR Baseline Rate: 135 Monitor Mode: External US Variability: Moderate 6-25 bpm Accelerations: 15X15 Decelerations: None Category: Category I Pain Assessment Pain Scale: 3 Pain Presence: Intermittent Pain Type: Contraction Pain Location: Abdomen Pain Goal: 3 Datetime: 03/09/2017 10:01 Labor Evaluation Frequency: X3 Monitor Mode: External Duration (sec)2399: 60 Quality: Mild Pattern: Normal: <= 5 Contractions in 10 Minutes Resting Tone [place]: Relaxed Heart Rate FHR Baseline Rate: 135 Monitor Mode: External US Variability: Moderate 6-25 bpm Accelerations: 15X15 Decelerations: None Category: Category I Pain Assessment Pain Scale: 4 Pain Presence: Intermittent Pain Type: Contraction Pain Location: Abdomen Pain Goal: 3 Datetime: 03/09/2017 09:01 Labor Evaluation Frequency: X5 Monitor Mode: External Duration (sec)2399: 50-60 Quality: Mild Pattern: Normal: <= 5 Contractions in 10 Minutes Resting Tone [place]: Relaxed Heart Rate FHR Baseline Rate: 135 Monitor Mode: External US Variability: Moderate 6-25 bpm Accelerations: 15X15 Decelerations: None Category: Category I Pain Assessment Pain Scale: 6 Pain Presence: Intermittent Pain Type: Contraction Pain Location: Abdomen Pain Goal: 3 Datetime: 03/09/2017 07:59 Labor Evaluation Frequency: X5 Monitor Mode: Palpation Duration (sec)2399: 60-80 Quality: Mild Pattern: Normal: <= 5 Contractions in 10 Minutes Resting Tone [place]: Relaxed Heart Rate FHR Baseline Rate: 125 Monitor Mode: External US Variability: Moderate 6-25 bpm Accelerations: 15X15 Decelerations: None Category: Category I Pain Assessment Pain Scale: 6 Pain Presence: Intermittent Pain Type: Contraction Pain Location: Abdomen Pain Goal: 3 Datetime: 03/09/2017 07:17 Assessment Type: Ongoing Assessment Maternal Assessment Level of Consciousness: Fully Conscious DTR's/Clonus: DTRs 2+; No Clonus Headache: Denies Blurred Vision: No Respiratory Effort: Unlabored; Regular Rhythm; Equal Expansion Breath Sounds, Left: Clear and Equal Breath Sounds, Right: Clear and Equal Nausea/Vomiting: Denies RUQ Epigastric Pain: Denies Lower Extremities Edema: None Degree: None Upper Extremities Edema: None Degree: None Facial Edema: None Fall Risk Assessment History of Falling: (0) No Secondary Diagnosis: (0) No Ambulatory Aid: (0) Bedrest/Nurse Assist IV Therapy: (20) Yes Gait: (0) Normal/Bedrest/Immobile Mental Status: (0) Oriented to Own Ability Fall Score: 20 Fall Risk Score Definition: No Risk: No action required Datetime: 03/09/2017 06:54 Vaginal Exam Dilatation (cms): 3.0 Effacement (%): 60 Station: -1 Exam By: LAUREN Cervix, Position: Posterior Datetime: 03/09/2017 06:38 Comments: LOTS OF MOVEMENT, MONITOR LOSS OF CONTACT Datetime: 03/09/2017 06:30 Labor Evaluation Frequency: OCCASIONAL Monitor Mode: External Duration (sec)2399: 40-80 Quality: Mild Pattern: Normal: <= 5 Contractions in 10 Minutes Resting Tone [place]: Relaxed Contraction Comments: 4UC'S NOTED IN THE PAST HOUR Heart Rate FHR Baseline Rate: 130 Monitor Mode: External US Variability: Moderate 6-25 bpm Accelerations: 15X15 Decelerations: None Category: Category I Datetime: 03/09/2017 06:05 Stage of : Labor Datetime: 03/09/2017 05:30 Labor Evaluation Frequency: 7-12 Monitor Mode: External Pattern: Normal: <= 5 Contractions in 10 Minutes Contraction Comments: IRREGULAR PATTERN Heart Rate FHR Baseline Rate: 120 Monitor Mode: External US FHR Baseline Changes: No Baseline Change Variability: Moderate 6-25 bpm Decelerations: Variable Comments: PERIODS OF MINIMAL VARIABILITY Datetime: 03/09/2017 04:30 Labor Evaluation Frequency: 6-8 Monitor Mode: External Duration (sec)2399: 60-80 Pattern: Normal: <= 5 Contractions in 10 Minutes Contraction Comments: IRREGULAR PATTERN Heart Rate FHR Baseline Rate: 125 Monitor Mode: External US FHR Baseline Changes: No Baseline Change Variability: Moderate 6-25 bpm Accelerations: 15X15 Datetime: 03/09/2017 03:30 Labor Evaluation Frequency: 6-8 Monitor Mode: External Duration (sec)2399: 40-70 Pattern: Normal: <= 5 Contractions in 10 Minutes Heart Rate FHR Baseline Rate: 120 Monitor Mode: External US FHR Baseline Changes: No Baseline Change Variability: Moderate 6-25 bpm Accelerations: 15X15 Datetime: 03/09/2017 02:55 Monitor Mode: External Monitor Mode: External US Datetime: 03/09/2017 02:53 Labor Evaluation Frequency: 3-6 Monitor Mode: External Duration (sec)2399: 40-80 Quality: Moderate Pattern: Normal: <= 5 Contractions in 10 Minutes Resting Tone [place]: Relaxed Heart Rate FHR Baseline Rate: 120 Monitor Mode: External US FHR Baseline Changes: No Baseline Change Variability: Moderate 6-25 bpm Accelerations: 15X15 Decelerations: None Category: Category I Pain Assessment Pain Scale: 7 Pain Presence: Intermittent Pain Type: Contraction Pain Location: Abdomen Pain Relief Measures: Comfort Measures Datetime: 03/09/2017 02:28 Monitor Mode: External Monitor Mode: External US Datetime: 03/09/2017 01:53 Assessment Type: Admission Assessment Vaginal Bleeding: None Maternal Assessment Level of Consciousness: Fully Conscious DTR's/Clonus: DTRs 2+; No Clonus Headache: Denies Blurred Vision: No Respiratory Effort: Unlabored; Regular Rhythm; Equal Expansion Breath Sounds, Left: Clear and Equal Breath Sounds, Right: Clear and Equal Nausea/Vomiting: Denies RUQ Epigastric Pain: Denies Lower Extremities Edema: None Degree: None Upper Extremities Edema: None Degree: None Facial Edema: None Temperature Route: Oral Fall Risk Assessment History of Falling: (0) No Secondary Diagnosis: (0) No Ambulatory Aid: (0) Bedrest/Nurse Assist IV Therapy: (20) Yes Gait: (0) Normal/Bedrest/Immobile Mental Status: (0) Oriented to Own Ability Fall Score: 20 Fall Risk Score Definition: No Risk: No action required Labor Evaluation Frequency: 2-6 Monitor Mode: External Duration (sec)4089: 40-80 Quality: Mild Pattern: Normal: <= 5 Contractions in 10 Minutes Resting Tone [place]: Relaxed Heart Rate FHR Baseline Rate: 120 Monitor Mode: External US Variability: Moderate 6-25 bpm Accelerations: 15X15 Decelerations: None Category: Category I Comments: CHANGE IN BASELINE Pain Assessment Pain Scale: 7 Pain Presence: Intermittent Pain Type: Contraction Pain Location: Abdomen Pain Assessment Comments: PT STATES HER PAIN IS TOLERABLE AT THIS TIME AND THAT SHE'S BREATHING TH ROUGH THEM EFFECTIVELY. PT REFUSES PAIN MEDS AT THIS TIME. Datetime: 03/09/2017 01:49 Comments: MONITOR ON, PT IN FBC3 Datetime: 03/09/2017 01:23 Time of Arrival: 03/09/2017 00:15 EGA: 37.5 Arrived By: Ambulatory Arrived From: Home Datetime: 03/09/2017 01:10 Stage of : OB Triage Labor Evaluation Frequency: 2-5 Monitor Mode: External Duration (sec)2399: 60-90 Quality: Moderate Pattern: Normal: <= 5 Contractions in 10 Minutes Resting Tone [place]: Relaxed Heart Rate FHR Baseline Rate: 130 Monitor Mode: External US FHR Baseline Changes: No Baseline Change Variability: Moderate 6-25 bpm Accelerations: 15X15 Decelerations: None Category: Category I Pain Assessment Pain Scale: 7 Pain Presence: Intermittent Pain Type: Contraction Pain Location: Abdomen Datetime: 03/08/2017 20:48 Fall Score: 0 Fall Risk Score Definition: No Risk: No action required Datetime: 03/08/2017 20:42 EGA: 37.4 Datetime: 02/24/2017 16:54 EGA: 35.6 Datetime: 02/24/2017 14:00 Fall Score: 0 Fall Risk Score Definition: No Risk: No action required Datetime: 02/19/2017 03:30 EGA: 35.1 Datetime: 02/05/2017 21:00 EGA: 33.1 Datetime: 12/27/2016 13:11 Fall Score: 0 Fall Risk Score Definition: No Risk: No action required Datetime: 12/27/2016 13:02 EGA: 27.3 Datetime: 11/26/2016 10:54 Fall Score: 0 Fall Risk Score Definition: No Risk: No action required Datetime: 11/26/2016 10:48 EGA: 23.0
== END 2017-03-12 20:35 | disposition home or self-care (01) ==
LOC: OBT 15:30 → L-D 15:32 → OBT 20:35
PROVIDERS: ATTEND Obstetrics & Gynecology
DX: O42.92 Full-term premature rupture of membranes, unspecified as to length of time between rupture and onset of labor (principal); Z3A.38 38 weeks gestation of pregnancy
CPT/HCPCS: 76815; 80053; 81003; 84112; 84560; 85025; G0463

== ENCOUNTER 2017-03-26 07:52 | Inpatient (IN) | payer OTHER ==
[~2017-03-26] VITALS: Ht 165.1 cm; Wt 74.2 kg
[2017-03-26] MEDS ORDERED: LACTATED RINGER'S 1,000 ML IV SCH (08:06)
[2017-03-26] MEDS ORDERED: MISOPROSTOL 200 MCG TAB PR PRN (08:30)
[2017-03-26] MEDS ORDERED: BUTORPHANOL 2 MG INJ IV PRN ×2 (08:30)
[2017-03-26] MEDS ORDERED: IBUPROFEN 600 MG TAB PO PRN (08:30)
[2017-03-26] MEDS ORDERED: OXYTOCIN 30 UNITS/LR 500 ML IV SCH ×2 (08:30→19:01)
[2017-03-26] MEDS ORDERED: HYDROCODONE/APAP (5/325) TAB PO PRN ×3 (08:30→19:30)
[2017-03-26] MEDS ORDERED: CARBOPROST 250 MCG INJ IM PRN (08:30)
[2017-03-26] MEDS ORDERED: METHYLERGONOVINE 0.2 MG INJ IM PRN (08:30)
[2017-03-26] MEDS ORDERED: OXYTOCIN 30 UNITS/LR 500 ML IV PRN (08:30)
[2017-03-26] MEDS ORDERED: LIDOCAINE 1% (MPF) 30 ML INJ INJ PRN (08:30)
[2017-03-26 08:43] VITALS: Ht 165.1 cm; Wt 74.2 kg
[2017-03-26 08:44] VITALS: BP 110/74; PULSE 80; RESP 20
[2017-03-26] MEDS ORDERED: LACTATED RINGER'S 1,000 ML IV PRN (09:00)
[2017-03-26 09:15] LABS: ABNORMAL IP MESSAGE 1; BASOPHILS % 0.2 % (0.0-2.0); EOSINOPHILS # 0.1 10^3/ul (0.0-0.5); EOSINOPHILS % 0.6 % (0.0-7.0); HEMATOCRIT 30.5 % (37.0-47.0); HEMOGLOBIN 9.5 g/dl (12.0-16.0); LYMPHOCYTES # 1.2 10^3/ul (0.8-2.9); LYMPHOCYTES % 12.8 % (15.0-51.0); MEAN CORPUSCULAR HEMOGLOBIN 21.7 pg (29.0-33.0); MEAN CORPUSCULAR HGB CONC 31.1 g/dl (32.0-37.0); MEAN CORPUSCULAR VOLUME 69.8 fl (82.0-101.0); MONOCYTE # 0.6 10^3/ul (0.3-0.9); NEUTROPHIL # 7.6 10^3/ul (1.6-7.5); NEUTROPHILS % 79.9 % (39.0-77.0); NUCLEATED RED BLOOD CELLS% 0.2 /100WBC (0.0-0.0); PLATELET COUNT 167 10^3/UL (140-415); RED BLOOD COUNT 4.37 10^6/ul (4.20-5.40); WHITE BLOOD COUNT 9.5 10^3/ul (4.8-10.8)
[2017-03-26 09:20] LABS: POSITIVE DIFF @See below
[2017-03-26 09:30] LABS: INR 0.91; PROTIME 12.2 Sec (12.2-14.2)
[2017-03-26 09:31] LABS: PARTIAL THROMBOPLASTIN TIME 28.5 Sec (25.0-35.0)
[2017-03-26 09:38] LABS: BARBITURATES Negative (NEGATIVE); BENZODIAZEPINES Negative (NEGATIVE); CANNABINOIDS Negative (NEGATIVE); COCAINE Negative (NEGATIVE); OPIATES Negative (NEGATIVE)
[2017-03-26] MEDS: OXYTOCIN 30 UNITS/LR 500 ML IV SCH ×2 (12:02→12:28)
--- NOTE | 2017-03-26 12:39 | HP ---
Date/Time of Note Date/Time of Note DATE: 03/26/17 TIME: 12:34 OB - History Hx of Present Free Text/Dictation 26 years old female [id number] with a EDC March 27, 2017 admitted to [facility] at 39 weeks and 6 days in labor pelvic examination on admission cervix 5 cm dilated 80% effaced vertex at -2 station with intact membrane heart rate category 1 and transferred from triage to L&D for delivery Chief Complaint: Her contraction Estimated Due Date: Mar 27, 2017 : 8 Para: 3 Spontaneous : 2 Therapeutic : 2 Care: Limited Care Ultrasounds: Normal mid trimester US Obstetrical Complications: None Medical Complications: None Past Family/Social History * Past Medical, Surgical, Family and Obstetric Histories reviewed from chart. Rubella: immune RPR/VDRL: Negative GBS Status: Negative OB Admission Exam Vital Signs Vital Signs Vital Signs Date Time Temp Pulse Resp B/P Pulse Ox O2 Delivery O2 Flow Rate FiO2 03/26/17 08:44 98.5 80 20 110/74 99 Room Air Physical Exam HEENT: WNL Heart: Rhythm Normal Lungs: Clear, Equal Abdomen: WNL Extremities: Normal Reflexes: Normal Cervical Dilatation: 5cm Effacement: 100% Station: -1 Heart Rate: 130's Accelerations: Accelerations Present Decelerations: Early Decelerations Varibility: Moderate Intensity: Firm Last 72 hours Lab Results CBC & BMP 03/26/17 08:20 OB Assessment/Plan Reason for admission: other (Term in active labor) Plan: Expectant Management (Expecting management for normal vaginal delivery) FELICITY ALBERT MD Mar 26, 2017 12:39
--- NOTE | 2017-03-26 12:43 | LDN ---
Date/Time of Note Date/Time of Note DATE: 03/26/17 TIME: 12:39 Delivery Summary Normal spontaneous vaginal delivery of baby girl from OA position shoulders delivered without any difficulty of the baby's body followed was clamped after stopped pulsing symptoms spontaneous expulsion inspected it seemed complete blood loss 250 cc vaginal perineal examination laceration Weeks of Gestation 39 weeks 6 day Placenta Delivered: Spontaneously Episiotomy: No Laceration repair: None Anesthesia type: None (On) Estimated blood loss: 250 Sponge & Needle done & correct: Yes All needle counts correct: Yes Any foreign bodies felt in the: No Problems: Delivery Information Sex Infant Sex: female Apgars 1 Minute: 8 5 Minute: 9 Suctioning Nose & mouth suctioned at kirsten: Yes Delee suction performed: No Umbilical Cord Umbilical cord with: 3 Vessels Cord presentations: no nuchal cord Cord Blood was obtained: Yes FELICITY ALBERT MD Mar 26, 2017 12:43
[2017-03-26 18:40] VITALS: BP 132/77; PULSE 70; RESP 16
[2017-03-26] MEDS ORDERED: DIBUCAINE 1% 30 GM OINT PR PRN (19:30)
[2017-03-26] MEDS ORDERED: OXYCODONE/ASPIRIN (4.88/325) TAB PO PRN ×2 (19:30)
[2017-03-26] MEDS ORDERED: ACETAMINOPHEN 325 MG TAB PO PRN (19:30)
[2017-03-26] MEDS ORDERED: LANOLIN 7 GM TUBE TOP PRN (19:30)
[2017-03-26] MEDS ORDERED: ONDANSETRON 4 MG INJ IV PRN (19:30)
[2017-03-26] MEDS ORDERED: BENZOCAINE 20% 56 ML SPRAY TOP PRN (19:30)
[2017-03-26] MEDS ORDERED: WITCH HAZEL/GLYCERIN PAD PR PRN (19:30)
[2017-03-26 20:00] VITALS: BP 129/69; PULSE 66; RESP 18
--- NOTE | 2017-03-26 20:01 | TRIAGE ---
OB Triage Datetime Report Generated by CPN: 03/26/2017 20:01 Datetime: 03/26/2017 18:00 Stage of : Recovery Pain Presence: None/Denies Datetime: 03/26/2017 15:00 Stage of : Recovery Temperature Route: Axillary Pain Presence: None/Denies Datetime: 03/26/2017 12:58 Stage of : Recovery Pain Presence: None/Denies Pain Relief Measures: Comfort Measures Datetime: 03/26/2017 12:43 Stage of : Recovery Pain Presence: None/Denies Pain Relief Measures: Comfort Measures Datetime: 03/26/2017 12:29 Stage of : Recovery Pain Presence: None/Denies Pain Relief Measures: Comfort Measures Datetime: 03/26/2017 12:13 Stage of : Recovery Pain Presence: None/Denies Pain Relief Measures: Comfort Measures Datetime: 03/26/2017 11:58 Stage of : Recovery Temperature Route: Oral Pain Presence: None/Denies Pain Relief Measures: Comfort Measures Datetime: 03/26/2017 11:29 Vaginal Exam Dilatation (cms): 10.0 Effacement (%): 100 Station: -1 Datetime: 03/26/2017 11:25 Vaginal Exam Dilatation (cms): 9.0 Effacement (%): 100 Station: -1 Datetime: 03/26/2017 11:19 Vaginal Exam Dilatation (cms): 8.0 Effacement (%): 90 Station: -1 Datetime: 03/26/2017 11:08 Vaginal Exam Dilatation (cms): 7.0 Effacement (%): 90 Station: -2 Datetime: 03/26/2017 10:41 Labor Evaluation Frequency: 2-4 Monitor Mode: External Duration (sec)2399: 50-80 Quality: Moderate Pattern: Normal: <= 5 Contractions in 10 Minutes Resting Tone [place]: Relaxed Heart Rate FHR Baseline Rate: 130 Monitor Mode: External US FHR Baseline Changes: No Baseline Change Variability: Moderate 6-25 bpm Accelerations: 15X15 Decelerations: None Category: Category I Pain Assessment Pain Scale: 9 Pain Presence: Intermittent Pain Type: Cramping Pain Location: Abdomen Pain Relief Measures: Comfort Measures Datetime: 03/26/2017 10:20 Vaginal Exam Dilatation (cms): 6.0 Effacement (%): 80 Station: -2 Membrane Status: Ruptured Membranes Rupture Method: Artificial Amniotic Fluid Color: Clear Amniotic Fluid Amount: Small Datetime: 03/26/2017 09:59 Labor Evaluation Frequency: 1-3 Monitor Mode: External Duration (sec)2399: 50-80 Quality: Moderate Pattern: Normal: <= 5 Contractions in 10 Minutes Resting Tone [place]: Relaxed Heart Rate FHR Baseline Rate: 120 Monitor Mode: External US FHR Baseline Changes: No Baseline Change Variability: Moderate 6-25 bpm Accelerations: 15X15 Decelerations: None Category: Category I Pain Presence: None/Denies Datetime: 03/26/2017 09:56 Vaginal Exam Dilatation (cms): 5.0 Effacement (%): 80 Station: -2 Membrane Status: Bulging Datetime: 03/26/2017 09:08 Assessment Type: Admission Assessment Maternal Assessment Level of Consciousness: Fully Conscious DTR's/Clonus: DTRs 2+; No Clonus Headache: Denies Blurred Vision: No Respiratory Effort: Unlabored; Regular Rhythm; Equal Expansion Breath Sounds, Left: Clear and Equal Breath Sounds, Right: Clear and Equal Nausea/Vomiting: Denies RUQ Epigastric Pain: Denies Facial Edema: None Fall Risk Assessment History of Falling: (0) No Secondary Diagnosis: (0) No Ambulatory Aid: (0) Bedrest/Nurse Assist IV Therapy: (0) No Gait: (0) Normal/Bedrest/Immobile Mental Status: (0) Oriented to Own Ability Fall Score: 0 Fall Risk Score Definition: No Risk: No action required Datetime: 03/26/2017 09:04 Labor Evaluation Frequency: 1.5-3 Monitor Mode: External Duration (sec)2399: 50-80 Quality: Strong Pattern: Normal: <= 5 Contractions in 10 Minutes Resting Tone [place]: Relaxed Heart Rate FHR Baseline Rate: 135 Monitor Mode: External US FHR Baseline Changes: No Baseline Change Variability: Moderate 6-25 bpm Accelerations: 15X15 Decelerations: None Category: Category I Pain Assessment Pain Scale: 9 Pain Presence: Intermittent Pain Type: Cramping Pain Location: Abdomen Pain Relief Measures: Pain Medication Given Datetime: 03/26/2017 08:59 Stage of : Labor Datetime: 03/26/2017 08:48 Stage of : Labor Datetime: 03/26/2017 08:39 Assessment Type: Admission Assessment Vaginal Bleeding: None Maternal Assessment Level of Consciousness: Fully Conscious DTR's/Clonus: DTRs 2+; No Clonus Headache: Denies Blurred Vision: No Respiratory Effort: Unlabored; Regular Rhythm; Equal Expansion Breath Sounds, Left: Clear and Equal Breath Sounds, Right: Clear and Equal Nausea/Vomiting: Denies RUQ Epigastric Pain: Denies Facial Edema: None Fall Risk Assessment History of Falling: (0) No Secondary Diagnosis: (0) No Ambulatory Aid: (0) Bedrest/Nurse Assist Gait: (0) Normal/Bedrest/Immobile Mental Status: (0) Oriented to Own Ability Pain Assessment Pain Scale: 9 Pain Presence: Intermittent Pain Type: Cramping Pain Location: Abdomen; Back Pain Goal: 2 Datetime: 03/26/2017 08:35 Labor Evaluation Frequency: 2-5 Monitor Mode: External Duration (sec)2399: 50-90 Quality: Strong Pattern: Normal: <= 5 Contractions in 10 Minutes Resting Tone [place]: Relaxed Heart Rate FHR Baseline Rate: 155 Monitor Mode: External US Variability: Moderate 6-25 bpm Accelerations: 15X15 Decelerations: None Category: Category I Datetime: 03/26/2017 08:30 Time of Arrival: 03/26/2017 08:30 EGA: 39.6 Arrived By: Ambulatory Arrived From: Home Chief Complaint: UC'S SINCE O400 Movement: Present Contractions: Regular Time Contractions Began: 03/26/2017 04:00 Contractions: Q2-5 Rupture of Membranes: Denies Vaginal Bleeding: None Vaginal Discharge: Denies Recent Sexual Intercouse: Denies Abdominal Trauma: Not Applicable Patient Complaints: Contractions; Headache Time Provider Notified: 03/26/2017 08:00 Provider Notified: UAJE Initial Plan: SVE, NST CALL MD Datetime: 03/26/2017 08:28 Labor Evaluation Frequency: 3-5 Monitor Mode: External Duration (sec)2399: 50-90 Quality: Strong Pattern: Normal: <= 5 Contractions in 10 Minutes Resting Tone [place]: Relaxed Heart Rate FHR Baseline Rate: 145 Monitor Mode: External US Variability: Moderate 6-25 bpm Accelerations: 15X15 Decelerations: None Category: Category I Datetime: 03/26/2017 08:15 Stage of : OB Triage Assessment Type: Triage Maternal Assessment Level of Consciousness: Fully Conscious DTR's/Clonus: DTRs 2+; No Clonus Headache: Denies Blurred Vision: No Respiratory Effort: Unlabored; Regular Rhythm; Equal Expansion Breath Sounds, Left: Clear and Equal Breath Sounds, Right: Clear and Equal Nausea/Vomiting: Denies RUQ Epigastric Pain: Denies Lower Extremities Edema: Bilateral Lower Extremities Degree: 1+ Upper Extremities Edema: None Degree: None Facial Edema: None Temperature Route: Axillary Fall Risk Assessment History of Falling: (0) No Secondary Diagnosis: (0) No Ambulatory Aid: (0) Bedrest/Nurse Assist IV Therapy: (0) No Gait: (0) Normal/Bedrest/Immobile Mental Status: (0) Oriented to Own Ability Fall Score: 0 Fall Risk Score Definition: No Risk: No action required Datetime: 03/26/2017 07:59 Vaginal Exam Dilatation (cms): 4.5 Effacement (%): 80 Station: -2 Exam By: OGBOBRITANY RN Datetime: 03/26/2017 07:57 Membrane Status: Bulging Datetime: 03/12/2017 17:00 EGA: 37.6 Datetime: 03/12/2017 16:15 Fall Score: 0 Fall Risk Score Definition: No Risk: No action required Datetime: 03/09/2017 07:17 Fall Score: 20 Fall Risk Score Definition: No Risk: No action required Datetime: 03/09/2017 01:53 Fall Score: 20 Fall Risk Score Definition: No Risk: No action required Datetime: 03/09/2017 01:23 EGA: 37.3 Datetime: 03/08/2017 20:48 Fall Score: 0 Fall Risk Score Definition: No Risk: No action required Datetime: 03/08/2017 20:42 EGA: 37.2 Datetime: 02/24/2017 16:54 EGA: 35.4 Datetime: 02/24/2017 14:00 Fall Score: 0 Fall Risk Score Definition: No Risk: No action required Datetime: 02/19/2017 03:30 EGA: 34.6 Datetime: 02/05/2017 21:00 EGA: 32.6 Datetime: 12/27/2016 13:11 Fall Score: 0 Fall Risk Score Definition: No Risk: No action required Datetime: 12/27/2016 13:02 EGA: 27.1 Datetime: 11/26/2016 10:54 Fall Score: 0 Fall Risk Score Definition: No Risk: No action required Datetime: 11/26/2016 10:48 EGA: 22.5 Membranes Ruptured Date/Time: 03/26/2017 10:20 Amniotic Fluid Odor: None
[2017-03-26] MEDS: SENNA/DOCUSATE NA (8.6MG/50MG) TAB PO SCH (21:02)
[2017-03-26] MEDS: IBUPROFEN 600 MG TAB PO SCH (23:52)
[2017-03-27] VITALS: BP 120/65; PULSE 70; RESP 18
[2017-03-27 04:00] VITALS: BP 123/74; PULSE 61; RESP 18
[2017-03-27] MEDS: IBUPROFEN 600 MG TAB PO SCH ×3 (06:00→18:01)
[2017-03-27 08:00] VITALS: BP 127/68; PULSE 65; RESP 16
[2017-03-27 08:47] LABS: ABNORMAL IP MESSAGE 1; BASOPHILS % 0.1 % (0.0-2.0); EOSINOPHILS # 0.1 10^3/ul (0.0-0.5); HEMATOCRIT 28.7 % (37.0-47.0); HEMOGLOBIN 8.6 g/dl (12.0-16.0); LYMPHOCYTES # 1.5 10^3/ul (0.8-2.9); LYMPHOCYTES % 21.1 % (15.0-51.0); MEAN CORPUSCULAR HEMOGLOBIN 20.8 pg (29.0-33.0); MEAN CORPUSCULAR VOLUME 69.5 fl (82.0-101.0); MEAN PLATELET VOLUME 12.3 fl (7.4-10.4); MONOCYTE # 0.4 10^3/ul (0.3-0.9); MONOCYTES % 5.8 % (0.0-11.0); NEUTROPHIL # 5.2 10^3/ul (1.6-7.5); NEUTROPHILS % 71.4 % (39.0-77.0); PLATELET COUNT 150 10^3/UL (140-415); RED BLOOD COUNT 4.13 10^6/ul (4.20-5.40); RED CELL DISTRIBUTION WIDTH 18.4 % (11.5-14.5); WHITE BLOOD COUNT 7.3 10^3/ul (4.8-10.8)
[2017-03-27 08:57] LABS: POSITIVE DIFF @See below
[2017-03-27] MEDS: SENNA/DOCUSATE NA (8.6MG/50MG) TAB PO SCH ×2 (10:05→21:28)
--- NOTE | 2017-03-27 13:07 | PN ---
Date/Time of Note Date/Time of Note DATE: 03/27/17 TIME: 13:06 OB Subjective Subjective Subjective Post normal vaginal delivery day 1 Afebrile Vital signs are stable Abdomen soft Uterus firm Lochia normal Extremities normal Plan of a.m. discharge discussed FELICITY ALBERT MD Mar 27, 2017 13:07
[2017-03-27 16:00] VITALS: BP 121/73; PULSE 67; RESP 16
[2017-03-27 20:00] VITALS: BP 125/58; PULSE 70; RESP 18
[2017-03-27] MEDS ORDERED: INFLUENZA VIRUS VACCINE 0.5 ML SYG IM* ONE (20:30)
[2017-03-28 04:00] VITALS: BP 113/69; PULSE 66; RESP 18
[2017-03-28] MEDS: IBUPROFEN 600 MG TAB PO SCH ×4 (06:00→18:03)
[2017-03-28 09:00] VITALS: BP 122/59; PULSE 73; RESP 16
[2017-03-28] MEDS ORDERED: MEASLES,MUMPS,RUBELLA VACCINE INJ SC* ONE (09:00)
[2017-03-28] MEDS: SENNA/DOCUSATE NA (8.6MG/50MG) TAB PO SCH (12:22)
--- NOTE | 2017-03-28 13:41 | PD.PPDC ---
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
--- NOTE | 2017-03-28 13:44 | DS ---
Date/Time of Note Date/Time of Note DATE: 03/28/17 TIME: 13:42 Discharge Summary Admission/Discharge Info Admit Date/Time Mar 26, 2017 at 08:15 Discharge Date/Time March 28, 2000 at 1345 Discharge Diagnosis Day 2 post normal vaginal delivery Patient Condition: Good Procedures Normal vaginal delivery Hx of Present Illness Term in labor Hospital Course Satisfactory recovery uneventful Home Meds Reported Medications Folic Acid* (Folic Acid*) 0.8 Mg Tablet, 0.8 MG PO DAILY, TAB 03/08/17 Ferrous Sulfate* (Ferrous Sulfate*) 325 Mg Tabec, 325 MG PO BID, TAB 12/27/16 Vits W-Ca,Fe,Fa(<1MG) ( Vitamins) 1 Tab Tablet, 1 TAB PO DAILY 03/04/13 Follow-up Plan instructions given recommended to make appointment to be seen at the clinic in 2 weeks Primary Care Provider Abril Bates Time spent on discharge: < 30 minutes FELICITY ALBERT MD Mar 28, 2017 13:44
== END 2017-03-28 18:56 | disposition home or self-care (01) | DRG 775 ==
LOC: L-D 07:52 → OBT 07:52 → L-D 08:15 → OBT 08:30 → PP1 18:14
PROVIDERS: ADMIT Obstetrics & Gynecology; ATTEND Obstetrics & Gynecology
PROC: 10E0XZZ Delivery of Products of Conception, External Approach (ICD-10-PCS; principal; 2017-03-26)
DX: O80 Encounter for full-term uncomplicated delivery (principal); Z37.0 Single live birth; Z3A.39 39 weeks gestation of pregnancy
CPT/HCPCS: 80307; 85025; 85610; 85730; 86592; 86900; 86901; 87340; 90686; G0463; J0595; J2590; J7120

== ENCOUNTER 2018-01-27 22:40 | Emergency (ER) | END 2018-01-28 03:00 | disposition left against medical advice (07) ==

== ENCOUNTER 2018-02-22 15:45 | Emergency (ER) | END 2018-02-22 19:33 | disposition home or self-care (01) ==

== ENCOUNTER 2018-03-20 20:14 | Emergency (ER) | END 2018-03-20 21:25 | disposition home or self-care (01) ==

== ENCOUNTER 2018-06-03 18:23 | Outpatient (CLI) | END 2018-06-03 20:49 | disposition home or self-care (01) ==

== ENCOUNTER 2018-09-21 18:33 | Outpatient (CLI) | payer OTHER ==
[~2018-09-21] VITALS: Ht 157.5 cm; Wt 54.5 kg
[~2018-09-21 18:33] MED LIST changes: -FOL8 PO
[2018-09-21 18:51] VITALS: Ht 157.5 cm; Wt 54.5 kg
[2018-09-21 18:52] VITALS: BP 126/73; PULSE 100; RESP 20
--- NOTE | 2018-09-22 00:06 | TRIAGE ---
OB Triage Datetime Report Generated by CPN: 09/22/2018 00:05 Datetime: 09/21/2018 21:56 Labor Evaluation Frequency: 1.5-8 Monitor Mode: External Duration (sec)2399: 60-140 Pattern: Normal: <= 5 Contractions in 10 Minutes Heart Rate FHR Baseline Rate: 125 Monitor Mode: External US Variability: Moderate 6-25 bpm Accelerations: 15X15 Decelerations: None Datetime: 09/21/2018 21:00 Labor Evaluation Frequency: 2.5-8 Monitor Mode: External Duration (sec)2399: 40-150 Pattern: Normal: <= 5 Contractions in 10 Minutes Heart Rate FHR Baseline Rate: 125 Monitor Mode: External US Variability: Moderate 6-25 bpm Accelerations: 15X15 Decelerations: None Datetime: 09/21/2018 20:00 Labor Evaluation Frequency: 2-7 Monitor Mode: External Duration (sec)2399: 60-110 Pattern: Normal: <= 5 Contractions in 10 Minutes Heart Rate FHR Baseline Rate: 125 Monitor Mode: External US Variability: Moderate 6-25 bpm Accelerations: 15X15 Decelerations: None Vaginal Exam Dilatation (cms): 3.5 Effacement (%): 50 Station: -2 Datetime: 09/21/2018 19:09 Comments: Pt sitting on bed taking care of her 11 month old Datetime: 09/21/2018 19:07 Labor Evaluation Frequency: 4-7 Monitor Mode: External Duration (sec)2399: 60-90 Quality: Mild Pattern: Normal: <= 5 Contractions in 10 Minutes Resting Tone [place]: Relaxed Heart Rate FHR Baseline Rate: 135 Monitor Mode: External US FHR Baseline Changes: No Baseline Change Variability: Moderate 6-25 bpm Accelerations: 15X15 Decelerations: None Category: Category I Datetime: 09/21/2018 19:05 Comments: Pt on the phone, asking for help with the 11 month old. Datetime: 09/21/2018 18:54 Time of Arrival: 09/21/2018 18:26 EGA: 39.0 Arrived By: Ambulance Chief Complaint: Pt living in a hotel brought by ambulance for contractions Movement: Present Contractions: Regular Time Contractions Began: 09/21/2018 09:00 Rupture of Membranes: Denies Vaginal Bleeding: None Vaginal Discharge: Denies Recent Sexual Intercouse: Denies Abdominal Trauma: Not Applicable Patient Complaints: Contractions Time Provider Notified: 09/21/2018 19:51 Provider Notified: JUANY Initial Plan: NST, SVE, BPP/SHASHANK Datetime: 09/21/2018 18:43 Stage of : OB Triage Assessment Type: Triage Maternal Assessment Level of Consciousness: Fully Conscious DTR's/Clonus: DTRs 2+; No Clonus Headache: Denies Blurred Vision: No Respiratory Effort: Unlabored; Regular Rhythm; Equal Expansion Breath Sounds, Left: Clear and Equal Breath Sounds, Right: Clear and Equal Nausea/Vomiting: Denies RUQ Epigastric Pain: Denies Lower Extremities Edema: None Upper Extremities Edema: None Facial Edema: None Temperature Route: Oral Fall Risk Assessment History of Falling: (0) No Secondary Diagnosis: (0) No Ambulatory Aid: (0) Bedrest/Nurse Assist IV Therapy: (0) No Gait: (0) Normal/Bedrest/Immobile Mental Status: (0) Oriented to Own Ability Fall Score: 0 Fall Risk Score Definition: No Risk: No action required Datetime: 06/03/2018 20:43 Stage of : OB Triage Heart Rate FHR Baseline Rate: 140 FHR Baseline Changes: No Baseline Change Variability: Moderate 6-25 bpm Accelerations: 10X10 Datetime: 06/03/2018 19:20 Stage of : OB Triage Monitor Mode: External Pattern: Normal: <= 5 Contractions in 10 Minutes Resting Tone [place]: Relaxed Heart Rate FHR Baseline Rate: 140 Monitor Mode: External US FHR Baseline Changes: No Baseline Change Variability: Moderate 6-25 bpm Accelerations: 10X10 Decelerations: None Category: Category I Datetime: 06/03/2018 18:34 EGA: 23.2 Fall Score: 0 Fall Risk Score Definition: No Risk: No action required
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
== END 2018-09-21 22:06 | disposition home or self-care (01) ==
LOC: OBT 18:33 → L-D 18:34 → OBT 22:06
PROVIDERS: ATTEND Obstetrics & Gynecology
DX: O62.9 Abnormality of forces of labor, unspecified (principal); Z3A.39 39 weeks gestation of pregnancy
CPT/HCPCS: 76818